=== PATIENT | male | born 1960 | race Caucasian/White ===

== ENCOUNTER 2017-04-16 13:36 | Emergency (ER) | payer BC, OTHER ==
[~2017-04-16] VITALS: Ht 157.5 cm; Wt 82.0 kg
[~2017-04-16 13:36] MED LIST: ASPI-664 PO; CALC0.5C4 PO; CALC500T91 PO; CITA10TA84 PO; IBUP-1542 PO; LEVO175T6 PO; LISI1TAB8 PO; MAG355OR14 PO; METO-429 PO
[2017-04-16 13:52] VITALS: Ht 157.5 cm; Wt 82.0 kg
[2017-04-16] MEDS ORDERED: KETOROLAC 30 MG INJ IV STA (14:48)
[2017-04-16] MEDS ORDERED: ONDANSETRON 4 MG INJ IV STA (14:48)
[2017-04-16] MEDS ORDERED: DOCUSATE SODIUM 100 MG CAP PO ONE (15:00)
--- NOTE | 2017-04-16 15:05 | ERD ---
ER Documentation Chief Complaint Date/Time DATE: 04/16/17 TIME: 14:59 Chief Complaint Right-sided flank pain, hematuria, and constipation HPI Patient is a 56-year-old male with a past medical history of thyroid cancer, hypertension who presents to the emergency department with multiple complaints including right-sided flank pain, hematuria and constipation. Patient states his right-sided flank pain started yesterday. Patient states he had a sharp stabbing pain in his right flank region. Patient states he did have chills and vomited once, nonbloody nonbilious. Patient states this morning he had hematuria and urinary frequency. Patient also admits to diffuse abdominal pain and bloating. Patient does report passing gas.. Patient states he has had constipation for the last 2 days. Patient states he does often strain and only drinks about 2 bottles of water per day. Patient's last bowel movement was 2 days ago. Patient denies any chest pain, shortness of breath, left upper return pain, diaphoresis or LOC. Patient denies any saddle anesthesia, urinary incontinence, stool incontinence, falls or trauma. ROS All systems reviewed and are negative except as per history of present illness. Medications Home Meds Active Scripts Tamsulosin Hcl* (Flomax*) 0.4 Mg Cap.er.24h, 0.4 MG PO QPM, #30 CAP Prov:ELIZABETH YI PA-C 04/16/17 Ondansetron (Ondansetron Odt) 4 Mg Tab.rapdis, 4 MG PO Q6H Y for NAUSEA AND/OR VOMITING, #10 TAB Prov:ELIZABETH YI PA-C 04/16/17 Hydrocodone/Acetaminophen ([place] 5-325 Tablet) 1 Each Tablet, 1 TAB PO Q6H Y for PAIN, #10 TAB Prov:ELIZABETH YI PA-C 04/16/17 Mag Hydrox/Al Hydrox/Simeth (Maalox Advanced Suspension) 355 Ml Oral.susp, 2 TSP PO TID for PAIN, #24 OZ Prov:LAMONT MALDONADO MD 08/03/16 Ibuprofen* (Ibuprofen*) 600 Mg Tablet, 600 MG PO Q8 for PAIN AND/OR INFLAMMATION , #30 TAB Prov:LAMONT MALDONADO MD 08/03/16 Reported Medications Calcium Carbonate (Qlsg-Iqu-732) 500 Mg Tablet, 1000 MG PO BID, TAB 08/03/16 Metoprolol Tartrate* (Lopressor*) 50 Mg Tab, 50 MG PO BID, #60 TAB 08/03/16 Calcitriol* (Calcitriol*) 0.5 Mcg Capsule, 0.5 MCG PO BID, CAP 08/03/16 Citalopram Hydrobromide* (Citalopram Hydrobromide*) 10 Mg Tablet, 10 MG PO DAILY , #30 TAB 08/03/16 Lisinopril/Hydrochlorothiazide (Lisinopril-Hctz 20-25 mg Tab) 1 Each Tablet, 1 EACH PO DAILY, TAB 08/03/16 Levothyroxine Sodium* (Levothyroxine Sodium*) 175 Mcg Tablet, 175 MCG PO BEFORE BREAKFAST, #30 TAB 08/03/16 Aspirin* (Aspirin* EC) 81 Mg Tablet.dr, 81 MG PO DAILY, TAB 08/03/16 Allergies Allergies: Coded Allergies: No Known Allergy (Unverified , 07/27/16) PMhx/Soc History of Surgery: Yes (colonoscopy 1 week ago) Anesthesia Reaction: No Hx Neurological Disorder: No Hx Respiratory Disorders: No Hx Cardiac Disorders: Yes (HTN) Hx Psychiatric Problems: No Hx Miscellaneous Medical Probl: No Hx Alcohol Use: No Hx Substance Use: No Hx Tobacco Use: No Physical Exam Vitals Vital Signs Date Time Temp Pulse Resp B/P Pulse Ox O2 Delivery O2 Flow Rate FiO2 04/16/17 17:45 98.2 88 18 142/88 98 Room Air 04/16/17 13:52 98.3 109 20 165/103 98 Physical Exam GENERAL: Well-developed, well-nourished male. Appears in no acute distress. HEAD: Normocephalic, atraumatic. EYES: Pupils are equally reactive bilaterally. EOMs grossly intact. No conjunctival erythema. ENT: Moist mucous membranes. No uvula deviation. No kissing tonsils. NECK: Supple. No meningismus. Normal range of motion of the neck. LUNG: Clear to auscultation bilaterally. No rhonchi, wheezing, rales or coarse breath sounds. HEART: Regular rate and rhythm. No murmurs, rubs or gallops. ABDOMEN: No scars, ecchymosis or rashes noted. Soft, and nondistended. Minimally tender to palpation in all 4 quadrants. Positive bowel sounds in all four quadrants. No rebound tenderness, no guarding. (-) McBurney's point tenderness. Right CVA tenderness. EXTREMITIES: Equal pulses bilaterally. No peripheral clubbing, cyanosis or edema. No unilateral leg swelling. NEUROLOGIC: Alert and oriented. Moving all four extremities without any difficulty. Normal speech. Steady gait. SKIN: Normal color. Warm and dry. No rashes or lesions. Result Diagram: 04/16/17 1503 04/16/17 1503 Results 24 hrs Laboratory Tests Test 04/16/17 15:03 White Blood Count 8.210^3/ul Red Blood Count 4.7210^6/ul Hemoglobin 14.4g/dl Hematocrit 40.9% Mean Corpuscular Volume 86.7fl Mean Corpuscular Hemoglobin 30.5pg Mean Corpuscular Hemoglobin Concent 35.2g/dl Red Cell Distribution Width 13.0% Platelet Count 90977^3/UL Mean Platelet Volume 9.5fl Neutrophils % 64.4% Lymphocytes % 24.5% Monocytes % 9.3% Eosinophils % 1.0% Basophils % 0.4% Nucleated Red Blood Cells % 0.0/100WBC Neutrophils # 5.310^3/ul Lymphocytes # 2.010^3/ul Monocytes # 0.810^3/ul Eosinophils # 0.110^3/ul Basophils # 0.010^3/ul Nucleated Red Blood Cells # 0.010^3/ul Urine Color YELLOW Urine Clarity CLEAR Urine pH 6.0 Urine Specific [place] 1.016 Urine Ketones NEGATIVEmg/dL Urine Nitrite NEGATIVEmg/dL Urine Bilirubin NEGATIVEmg/dL Urine Urobilinogen NEGATIVEmg/dL Urine Leukocyte Esterase NEGATIVELeu/ul Urine Microscopic RBC 171/HPF Urine Microscopic WBC 0/HPF Urine Hemoglobin 3+mg/dL Urine Glucose NEGATIVEmg/dL Urine Total Protein 2+mg/dl Sodium Level 144mmol/L Potassium Level 3.6mmol/L Chloride Level 96mmol/L Carbon Dioxide Level 32mmol/L Anion Gap 20 Blood Urea Nitrogen 25mg/dl Creatinine 1.98mg/dl Glucose Level 92mg/dl Calcium Level 10.3mg/dl Total Bilirubin 0.4mg/dl Direct Bilirubin 0.00mg/dl Indirect Bilirubin 0.4mg/dl Aspartate Amino Transf (AST/SGOT) 21IU/L Alanine Aminotransferase (ALT/SGPT) 35IU/L Alkaline Phosphatase 61IU/L Total Protein 8.0g/dl Albumin 4.3g/dl Globulin 3.70g/dl Albumin/Globulin Ratio 1.16 Lipase 62U/L Current Medications Medications (Trade) Dose Ordered Sig/Miguel Route PRN Reason Start Time Stop Time Status Last Admin Dose Admin Ondansetron HCl (Zofran Inj) 4 mg ONCE STAT IV 04/16/17 14:48 04/16/17 14:51 DC 04/16/17 15:31 Ketorolac Tromethamine (Toradol) 30 mg ONCE STAT IV 04/16/17 14:48 04/16/17 14:51 DC 04/16/17 15:31 Docusate Sodium 100 mg 100 mg ONCE ONCE PO 04/16/17 15:00 04/16/17 15:01 DC 04/16/17 15:40 Sodium Chloride (NS) 1,000 ml @ 1,000 mls/hr Q1H ONCE IV 04/16/17 17:00 04/16/17 17:46 DC 04/16/17 16:56 Procedures/MDM ED COURSE: The patient was stable throughout ED course. I kept the patient and/or family informed of laboratory and diagnostic imaging results throughout the ED course. DIAGNOSTIC IMAGING: Read by radiologist. DIAGNOSTIC IMAGING REPORT Patient: JAMA GARCIAS : 1960 Age: 56 Sex: M [id number] DOS: 04/16/17 1448 Ordering MD: ELIZABETH YI PA-C Location: [facility] Room/Bed: PROCEDURE: CT ABDOMEN AND PELVIS WITHOUT CONTRAST: CLINICAL INDICATION: 56 years of age, male , constipation and difficulty with urination. COMPARISON: None TECHNIQUE: CT of the abdomen, and pelvis was performed without intravenous contrast. Oral contrast was not administered prior to the examination. Coronal and sagittal reformatted images were obtained from the axial source images. Images were reviewed on a high-resolution PACS workstation. Dose information: Based on a 32 cm phantom, the estimated radiation dose (CTDI vol mGy) for each series in this exam is 11.3 . The estimated cumulative dose (DLP mGy-cm) is 770 . FINDINGS: In the absence of intravenous contrast, the study constitutes a limited assessment of the solid organs and vessels. LUNG BASES: Normal. ABDOMEN/PELVIS: Liver: Mild steatosis. Gallbladder: Normal. Bile ducts: No intrahepatic or extrahepatic biliary duct dilatation. Spleen: Normal. Pancreas: Normal. Adrenal glands: Normal. Kidneys and ureters: There is a 0.4 cm obstructing calculus at the left UVJ that protrudes into the bladder lumen with mild left hydronephrosis and hydroureter and minimal left perinephric fat stranding. No additional urinary calculi are identified. Kidneys are otherwise normal. Aorta and IVC: Normal noncontrast appearance. Lymph nodes: Normal. Gastrointestinal tract: Bowel loops are decompressed and appear normal. A normal quantity of colonic stool. Appendix: Normal Bladder: Normal. Pelvic Organs: Normal. Peritoneal cavity: No free fluid or free intraperitoneal air. Abdominal wall: Normal. BONES: Musculoskeletal: No suspicious bone lesions. IMPRESSION: 0.4 cm obstructing calculus at the left UVJ with mild left hydronephrosis and hydroureter. Bowel loops appear normal. Normal quantity of colonic stool. RPTAT: HCTS Physician Rik Date Time Electronically viewed and signed by Physician Rik on 04/16/2017 16: 38 CS/ CC: ELIZABETH YI PA-C PROCEDURES: None. MEDICATIONS GIVEN: Toradol, Zofran, IV fluids, Colace Patient tolerated medication well with no adverse reactions. Patient reported improvement in pain. MEDICAL DECISION MAKING: This is a 56-year-old male who presents with numerous concerns including right- sided flank pain, chills, vomiting and constipation. Patient's right-sided flank pain chills and vomiting started yesterday. Patient also states he developed some hematuria this morning. Patient reports constipation for 2 days.. Vital signs were reviewed. Patient is afebrile. CBC showed no evidence of systemic infection or severe anemia. CMP showed BUN of 25, creatinine of 1.98. Lipase showed no evidence of acute pancreatitis. UA showed no evidence of acute infection however 3+ hemoglobin was noted, [address] abdomen and pelvis showed 0.4 cm obstructing calculus at the left UVJ with mild left hydronephrosis and hydroureter. Bowel loops appear normal. Normal quantity of colonic stool. Discussed the patient's blood work and CT imaging findings with my supervising physician Dr. Boles. At this time there is no indication for inpatient admission. Given the patient has no signs of urine infection, patient may be managed on an outpatient basis. Patient will be given urology follow-up information. Patient was advised to drink plenty of fluids. At this time, patient's presentation is most consistent with nephrolithiasis, hydronephrosis and acute kidney injury. Low suspicion for AAA, mesenteric ischemia, lower lobe pneumonia, DKA, bowel perforation, bowel obstruction, cholecystitis, choledocholithiasis, a pancreatitis, PUD, gastritis, diverticulitis, UTI, pyelonephritis, appendicitis, significant stool retention. PRESCRIPTIONS: Flomax, [place], Zofran DISCHARGE: At this time, patient is stable for discharge and outpatient management. She was given a copy of all imaging studies and blood work obtained today. Patient will be advised to follow-up with the urologist on an outpatient basis. Referral information provided. I have instructed the patient to follow-up with his/her primary care physician in 1-2 days. I have instructed the patient to promptly return to the ER at any time for any new or worsening symptoms including increased pain, nausea, vomiting, diarrhea, fever, weakness or LOC. The patient and/or family expressed understanding of and agreement with this plan. All questions were answered. Home care instructions were provided. Disclaimer: Inadvertent spelling and grammatical errors are likely due to EHR/ dictation software use and do not reflect on the overall quality of patient care. Also, please note that the electronic time recorded on this note does not necessarily reflect the actual time of the patient encounter. Patients blood pressure was elevated (>120/80) but appears stable without evidence of hypertensive emergency, hypertensive urgency or end-organ failure. I had discussion with the patient about the risks of hypertension. I have advised the patient to follow up with his/her primary care physician for outpatient monitoring and treatment for hypertension in 2-3 days. I have instructed the patient to return to the ER for any new or worsening symptoms including chest pain, shortness of breath, headache, blurred vision, confusion, nausea, vomiting or LOC. Disclaimer: Inadvertent spelling and grammatical errors are likely due to EHR/ dictation software use and do not reflect on the overall quality of patient care. Also, please note that the electronic time recorded on this note does not necessarily reflect the actual time of the patient encounter. Departure Diagnosis: Primary Impression: Nephrolithiasis Additional Impressions: Hydronephrosis Hydronephrosis type: with renal calculous obstruction Qualified Code: N13.2 - Hydronephrosis with urinary obstruction due to renal calculus JARED (acute kidney injury) Condition: Stable Patient Instructions: Identifying Kidney Stones Referrals: CORRINA PRICE MD, JENNIFER MD MOTZKIN, DONALD MD= [facility] Additional Instructions: Follow-up with your primary care physician in the next 1-2 days. Return to the emergency department for any new or worsening symptoms including but not limited to severe pain, nausea, vomiting, difficulty urinating or LOC. Follow-up with the urologist in the next 1-2 days. See referral information. Drink plenty of fluids. You may need laser lithotripsy procedure on outpatient basis. ELIZABETH IY PA-C Apr 16, 2017 15:04
[2017-04-16 15:23] LABS: BASOPHILS % 0.4 % (0.0-2.0); EOSINOPHILS # 0.1 10^3/ul (0.0-0.5); HEMATOCRIT 40.9 % (42.0-52.0); HEMOGLOBIN 14.4 g/dl (14.0-18.0); LYMPHOCYTES % 24.5 % (15.0-51.0); MEAN CORPUSCULAR HEMOGLOBIN 30.5 pg (29.0-33.0); MEAN CORPUSCULAR HGB CONC 35.2 g/dl (32.0-37.0); MEAN CORPUSCULAR VOLUME 86.7 fl (82.0-101.0); MEAN PLATELET VOLUME 9.5 fl (7.4-10.4); MONOCYTE # 0.8 10^3/ul (0.3-0.9); MONOCYTES % 9.3 % (0.0-11.0); NEUTROPHIL # 5.3 10^3/ul (1.6-7.5); NEUTROPHILS % 64.4 % (39.0-77.0); PLATELET COUNT 251 10^3/UL (140-415); RED BLOOD COUNT 4.72 10^6/ul (4.70-6.10); WHITE BLOOD COUNT 8.2 10^3/ul (4.8-10.8)
[2017-04-16 15:32] LABS: ADD UMIC YES; UR ASCORBIC ACID NEGATIVE (NEGATIVE); UR BILIRUBIN (Dip) NEGATIVE (NEGATIVE); UR BLOOD (Dip) 3+ mg/dL (NEGATIVE); UR CLARITY CLEAR (CLEAR); UR COLOR YELLOW (YELLOW); UR GLUCOSE (Dip) NEGATIVE (NEGATIVE); UR KETONES (Dip) NEGATIVE (NEGATIVE); UR LEUKOCYTE ESTERASE (Dip) NEGATIVE Leu/ul (NEGATIVE); UR NITRITE (Dip) NEGATIVE (NEGATIVE); UR RBC 171 /HPF (0-5); UR SPECIFIC GRAVITY (Dip) 1.016 (1.003-1.030); UR TOTAL PROTEIN (Dip) 2+ mg/dl (NEGATIVE); UR UROBILINOGEN (Dip) NEGATIVE (NEGATIVE)
[2017-04-16 15:49] LABS: ALBUMIN 4.3 g/dl (3.3-4.9); ALBUMIN/GLOBULIN RATIO 1.16; BILIRUBIN,INDIRECT 0.4 mg/dl (0-1.1); BILIRUBIN,TOTAL 0.4 mg/dl (0.2-1.3); CALCIUM 10.3 mg/dl (8.4-10.2); CREATININE 1.98 mg/dl (0.61-1.24); POTASSIUM 3.6 mmol/L (3.5-5.1)
--- NOTE | 2017-04-16 16:38 | RADRPT ---
PROCEDURE: CT ABDOMEN AND PELVIS WITHOUT CONTRAST: CLINICAL INDICATION: 56 years of age, male , constipation and difficulty with urination. COMPARISON: None TECHNIQUE: CT of the abdomen, and pelvis was performed without intravenous contrast. Oral contrast w as not administered prior to the examination. Coronal and sagittal reformatted images were obtained from the axial source images. Images were revi ewed on a high-resolution PACS workstation. Dose information: Based on a 32 cm phantom, the estimated radiation dose (CTDI vol mGy) for each ser ies in this exam is 11.3 . The estimated cumulative dose (DLP mGy-cm) is 770 . FINDINGS: In the absence of intravenous contrast, the study constitutes a limited assessment of the solid orga ns and vessels. LUNG BASES: Normal. ABDOMEN/PELVIS: Liver: Mild steatosis. Gallbladder: Normal. Bile ducts: No intrahepatic or extrahepatic biliary duct dilatation. Spleen: Normal. Pancreas: Normal. Adrenal glands: Normal. Kidneys and ureters: There is a 0.4 cm obstructing calculus at the left UVJ that protrudes into the bladder lumen with mild left hydronephrosis and hydroureter and minimal left perinephric fat strandi ng. No additional urinary calculi are identified. Kidneys are otherwise normal. Aorta and IVC: Normal noncontrast appearance. Lymph nodes: Normal. Gastrointestinal tract: Bowel loops are decompressed and appear normal. A normal quantity of coloni c stool. Appendix: Normal Bladder: Normal. Pelvic Organs: Normal. Peritoneal cavity: No free fluid or free intraperitoneal air. Abdominal wall: Normal. BONES: Musculoskeletal: No suspicious bone lesions. IMPRESSION: 0.4 cm obstructing calculus at the left UVJ with mild left hydronephrosis and hydroureter. Bowel loops appear normal. Normal quantity of colonic stool. RPTAT: HCTS Physician Rik Date Time Electronically viewed and signed by Physician Rik on 04/16/2017 16:38 CS/
[2017-04-16] MEDS ORDERED: ONDA4TAB14 PO (17:00)
[2017-04-16] MEDS ORDERED: HYDR-906 PO (17:00)
[2017-04-16] MEDS ORDERED: SOD CHLORIDE 0.9% 1,000 ML IV ONE (17:00)
[2017-04-16] MEDS ORDERED: TAMS-14 PO (17:01)
[2017-04-16 17:45] VITALS: BP 142/88; PULSE 88; RESP 18; TEMP 98.2
== END 2017-04-16 17:46 | disposition home or self-care (01) ==
LOC: FTE 13:36
DX: N13.2 Hydronephrosis with renal and ureteral calculous obstruction (principal); I10 Essential (primary) hypertension; N17.9 Acute kidney failure, unspecified; R11.10 Vomiting, unspecified; Z79.82 Long term (current) use of aspirin; Z85.850 Personal history of malignant neoplasm of thyroid
CPT/HCPCS: 36415; 74176; 80053; 81001; 83690; 85025; 96374; 96375; 99285; J1885; J2405; J7030

== ENCOUNTER 2018-11-19 14:23 | Inpatient (IN) | payer OTHER ==
[~2018-11-19] VITALS: Ht 167.6 cm; Wt 81.3 kg
[~2018-11-19 14:23] MED LIST changes: -ASPI-664 PO; +ASPI-817 PO; +CALC0.5C10 PO; -CALC0.5C4 PO; +CITA10TA5 PO; -CITA10TA84 PO; +HYDR-4011 PO; +ONDA4TAB14 PO; +TAMS-14 PO
[2018-11-19] MEDS ORDERED: SOD CHLORIDE 0.9% 1,000 ML IV STA (14:42)
[2018-11-19] MEDS ORDERED: ONDANSETRON 4 MG INJ IV STA (14:42)
[2018-11-19] MEDS ORDERED: morphine 4 MG/ML VIAL IV STA (14:42)
[2018-11-19] MEDS ORDERED: ASPIRIN 81 MG TAB PO ONE (16:30)
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
[2018-11-19] MEDS ORDERED: CALC0.5C10 PO (16:51)
[2018-11-19] MEDS ORDERED: CHLO25TA2 PO (16:51)
[2018-11-19] MEDS ORDERED: LEVO175T38 PO (16:51)
[2018-11-19] MEDS ORDERED: CALC1TAB79 PO (16:52)
[2018-11-19] MEDS ORDERED: ONDANSETRON 4 MG INJ IV PRN (17:00)
[2018-11-19] MEDS ORDERED: ACETAMINOPHEN 325 MG TAB PO PRN (17:00)
[2018-11-19] MEDS ORDERED: POTASSIUM CHLORIDE (SR) 20 MEQ TAB PO STA (17:05)
[2018-11-19] MEDS ORDERED: NACL 0.9% 3 ML SYG IV SCH (18:00)
[2018-11-19] MEDS ORDERED: NITROGLYCERIN (SL) 0.4 MG TAB SL PRN (18:00)
[2018-11-19] MEDS ORDERED: morphine 2 MG INJ IV PRN (18:00)
[2018-11-19] MEDS ORDERED: MAGNESIUM HYDROXIDE 30ML CUP PO PRN (18:00)
[2018-11-19] MEDS ORDERED: HYDROCODONE/APAP (5/325) TAB PO PRN (18:00)
[2018-11-19] MEDS ORDERED: hydrALAzine 20 MG INJ IV PRN (18:00)
[2018-11-19] MEDS ORDERED: LORAZEPAM 2 MG INJ IV PRN (18:00)
[2018-11-19] MEDS ORDERED: ALBUTEROL/IPRATROPIUM (NEB) 3 ML AMP HHN PRN (18:00)
[2018-11-19] MEDS ORDERED: DOCUSATE SODIUM 100 MG CAP PO PRN (18:00)
[2018-11-19 19:30] VITALS: Ht 167.6 cm; Wt 81.3 kg
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
[2018-11-19 20:08] VITALS: PULSE 118
[2018-11-19 20:21] VITALS: BP 119/70; PULSE 120; RESP 20
[2018-11-19] MEDS: ATORVASTATIN 80 MG TAB PO SCH (20:23)
[2018-11-19] MEDS: SOD CHLORIDE 0.45% 1,000 ML IV SCH (20:23)
[2018-11-19] MEDS: HEPARIN 5,000 UNIT/1 ML VIAL SC SCH (20:30)
[2018-11-19] MEDS: ACETAMINOPHEN 325 MG TAB PO PRN (20:35)
[2018-11-19] MEDS ORDERED: POTASSIUM CHLORIDE (SR) 20 MEQ TAB PO ONE (22:26)
[2018-11-19] MEDS ORDERED: IBUPROFEN 600 MG TAB PO ONE (22:30)
[2018-11-19 23:28] VITALS: BP 115/77; PULSE 100; RESP 20
[2018-11-20] VITALS (11 sets, daily range): BP systolic 121–138; BP diastolic 65–93; PULSE 83–112; RESP 20
[2018-11-20] MEDS: PANTOPRAZOLE (EC) 40 MG TAB PO SCH (06:26)
[2018-11-20] MEDS ORDERED: LEVOTHYROXINE 175 MCG TAB PO SCH (07:00)
[2018-11-20] MEDS: SOD CHLORIDE 0.45% 1,000 ML IV SCH ×3 (07:16→23:06)
[2018-11-20] MEDS: CALCITRIOL 0.25 MCG CAP PO SCH (09:51)
[2018-11-20] MEDS: ASPIRIN (EC) 325 MG TAB PO SCH (09:52)
[2018-11-20] MEDS: CHLORTHALIDONE 25 MG TAB PO SCH (09:52)
[2018-11-20] MEDS: HEPARIN 5,000 UNIT/1 ML VIAL SC SCH ×2 (10:43→20:38)
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
[2018-11-20] MEDS: ACETAMINOPHEN 325 MG TAB PO PRN ×2 (14:40→20:43)
--- NOTE | 2018-11-20 17:41 | RADRPT ---
Echocardiogram Report Patient Name: JAMA GARCIASPatient ID: [id number] : 1960 (58y )Study Date: 11/20/2018 7:22:42 AM Gender: Jesscession #: [id number] Tech: CHI Esparza [facility] Location: [address] Ref.Physician: EROS ANDERSEN Height(Cm): BSA: Weight(Kg): Quality: GoodAccount #: Procedures: Echocardiographic Report: Transthoracic echocardiogram with complete 2D, M-Mode, and doppler examination. Indications: r/o Transient Ischemic Attack. Measurements: 2D/M Mode Doppler Measurement Value Normal Range Measurement Value Normal Range LVIDd 2D 3.4 [ 4.2 - 5.8 ] cm AV Peak Bruno 1.2 [ 100.0 - 170.0 ] cm/se c LVIDs 2D 2.2 [ 2.5 - 4.0 ] cm AV Peak PG 6.0 [ 2.0 - 9.0 ] mmHg LVPWd 2D 0.9 [ 0.6 - 1.0 ] cm LVOT Peak Bruno 0.8 [ 70.0 - 110.0 ] cm/sec IVSd 2D 1.1 [ 0.6 - 1.0 ] cm LVOT Peak PG 3.0 [ 2.0 - 6.0 ] mmHg AoR Diam 2D 3.3 [ 2.6 - 3.4 ] cm MV E Peak Bruno 0.7 [ 60.0 - 130.0 ] cm/sec EDV 2D 47.8 [ 62.0 - 150.0 ] ml MV A Peak Bruno 0.3 [ 100.0 - 120.0 ] cm/se c ESV 2D 16.6 [ 21.0 - 61.0 ] ml MV E/A 2.4 [ 0.8 - 1.5 ] ratio EF 2D 65.3 [ 52.0 - 72.0 ] percent MV PHT 57.0 [ 20.0 - 100.0 ] msec LA Dimen 2D 3.0 [ 3.0 - 4.0 ] cm MV Decel Time 194 [ 104 - 258 ] msec MV Decel Harney 3 Lat E` Bruno 0.1 [ 10.0 - 15.0 ] cm/sec Lateral E/E` 7.4 [ 1.0 - 2.0 ] ratio Med E` Bruno 0.1 cm/sec MV E/A 2.4 [ 0.8 - 1.5 ] ratio MVA PHT 3.9 [ 2.0 - 4.0 ] cm2 Findings: Left Ventricle: Normal left ventricular systolic function. Normal left ventricular cavity size. Left ventricular wall thickness upper limits of normal. Ejection fraction is visually estimated at 55 %. Tissue Doppler/Mitral Doppler indices are within normal limits. Right Ventricle: Normal right ventricular size. Normal right ventricular systolic function. Left Atrium: The left atrium is normal in size. Right Atrium: The right atrium is normal in size. Atrial Septum: Normal atrial septum. Ventricular septum: Normal/intact ventricular septum. Mitral Valve: Normal appearance of the mitral valve. Trace mitral regurgitation. Aortic Valve: Normal appearance of the aortic valve. No aortic regurgitation. Tricuspid Valve: Normal appearance of the tricuspid valve. Unable to obtain RVSP due to minimal presence of tricuspid regurgitation. No evidence of tricuspid regurgitation. Pulmonic Valve: Normal pulmonic valve appearance. No evidence of pulmonic regurgitation. Pericardium: Normal pericardium with no significant pericardial effusion. Aorta: Normal aortic root. IVC: Normal size and normal respiratory collapse consistent with normal right atrial pressure. Conclusions: Normal left ventricular systolic function. Normal left ventricular cavity size. Left ventricular wall thickness upper limits of normal. Ejection fraction is visually estimated at 55 %. Tissue Doppler/Mitral Doppler indices are within normal limits. Electronically Signed By: Alfredo Neely 2018-11-20 17:40:18 PDT
[2018-11-20] MEDS: ATORVASTATIN 80 MG TAB PO SCH (20:33)
[2018-11-20] MEDS: CEFTRIAXONE 1 GM/50 ML (PMX) 50 ML IVPB SCH (22:17)
[2018-11-20] MEDS ORDERED: ACETAMINOPHEN 325 MG TAB PO ONE (22:30)
[2018-11-21] VITALS (13 sets, daily range): BP systolic 113–139; BP diastolic 73–89; PULSE 94–109; RESP 19–20
[2018-11-21] MEDS ORDERED: VANCOMYCIN IV PER PHARMACY XX SCH (01:00)
[2018-11-21] MEDS ORDERED: VANCOMYCIN HCL 1.5 GM in SOD CHLORIDE 0.9% 250 ML IVPB SCH (03:00)
[2018-11-21] MEDS: PANTOPRAZOLE (EC) 40 MG TAB PO SCH (05:21)
[2018-11-21] MEDS: LEVOTHYROXINE 150 MCG TAB PO SCH (05:22)
[2018-11-21] MEDS: ACETAMINOPHEN 325 MG TAB PO PRN ×3 (05:22→17:57)
[2018-11-21] MEDS ORDERED: LEVOTHYROXINE 175 MCG TAB PO SCH (07:00)
[2018-11-21] MEDS ORDERED: POTASSIUM CHLORIDE 20 MEQ POWDER FOR ORAL SOLN PO ONE (09:30)
[2018-11-21] MEDS: CALCITRIOL 0.25 MCG CAP PO SCH (10:43)
[2018-11-21] MEDS: ASPIRIN (EC) 325 MG TAB PO SCH (10:44)
[2018-11-21] MEDS: CHLORTHALIDONE 25 MG TAB PO SCH (10:44)
[2018-11-21] MEDS: SOD CHLORIDE 0.45% 1,000 ML IV SCH ×2 (10:44→21:05)
[2018-11-21] MEDS: HEPARIN 5,000 UNIT/1 ML VIAL SC SCH ×2 (10:50→21:02)
[2018-11-21] MEDS: ONDANSETRON 4 MG INJ IV PRN (12:05)
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
[2018-11-21] MEDS ORDERED: VANCOMYCIN 750 MG (PMX) 250 ML IVPB SCH (15:00)
[2018-11-21] MEDS: VANCOMYCIN 1 GM 250 ML IVPB SCH (16:06)
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
[2018-11-21] MEDS: ATORVASTATIN 80 MG TAB PO SCH (20:57)
[2018-11-21] MEDS ORDERED: IBUPROFEN 400 MG TAB PO ONE (21:00)
[2018-11-21] MEDS: CEFTRIAXONE 1 GM/50 ML (PMX) 50 ML IVPB SCH (22:16)
[2018-11-22] VITALS (12 sets, daily range): BP systolic 109–140; BP diastolic 67–85; PULSE 93–110; RESP 18–20
[2018-11-22] MEDS: VANCOMYCIN 1 GM 250 ML IVPB SCH ×2 (03:14→15:29)
[2018-11-22] MEDS: IBUPROFEN 400 MG TAB PO PRN ×3 (04:55→21:21)
[2018-11-22] MEDS: PANTOPRAZOLE (EC) 40 MG TAB PO SCH (06:25)
[2018-11-22] MEDS: LEVOTHYROXINE 150 MCG TAB PO SCH (06:25)
[2018-11-22] MEDS: CALCITRIOL 0.25 MCG CAP PO SCH (08:56)
[2018-11-22] MEDS: ASPIRIN (EC) 325 MG TAB PO SCH (08:57)
[2018-11-22] MEDS: CHLORTHALIDONE 25 MG TAB PO SCH (08:57)
[2018-11-22] MEDS: HEPARIN 5,000 UNIT/1 ML VIAL SC SCH ×2 (09:04→21:31)
[2018-11-22] MEDS ORDERED: POTASSIUM CHLORIDE 20 MEQ POWDER FOR ORAL SOLN PO ONE (09:30)
[2018-11-22] MEDS ORDERED: POTASSIUM CHLORIDE 100 ML IVPB ONE (09:30)
[2018-11-22] MEDS ORDERED: CEFTRIAXONE 1 GM/50 ML (PMX) 50 ML IVPB SCH (11:00)
--- NOTE | 2018-11-22 12:22 | CONS ---
Assessment/Plan Assessment/Plan Hospital Course (Demo Recall) EMR reviewed. Case d/w team. will be in shortly. added some additional w/u labs for now. Ty Consultation Date/Type/Reason Admit Date/Time Nov 21, 2018 at 09:13 Date/Time of Note DATE: 11/22/18 TIME: 12:21 Past Medical History Home Meds Reported Medications Calcium Carbonate/Vitamin D3 ([place] 500+D Tablet) 1 Each Tablet, 2 EACH PO BID, TAB 11/19/18 Calcitriol* (Calcitriol*) 0.5 Mcg Capsule, 0.5 MCG PO DAILY, CAP 11/19/18 Levothyroxine Sodium* (Levoxyl*) 175 Mcg Tablet, 175 MCG PO BEFORE BREAKFAST, #30 TAB 11/19/18 Chlorthalidone* (Chlorthalidone*) 25 Mg Tablet, 25 MG PO DAILY, TAB 11/19/18 Discontinued Reported Medications Calcium Carbonate ([id number]) 500 Mg Tablet, 1000 MG PO BID, TAB 08/03/16 Metoprolol Tartrate* (Lopressor*) 50 Mg Tab, 50 MG PO BID, #60 TAB 08/03/16 Calcitriol* (Calcitriol*) 0.5 Mcg Capsule, 0.5 MCG PO BID, CAP 08/03/16 Citalopram Hydrobromide* (Citalopram Hydrobromide*) 10 Mg Tablet, 10 MG PO DAILY, #30 TAB 08/03/16 Lisinopril/Hydrochlorothiazide (Lisinopril-Hctz 20-25 mg Tab) 1 Each Tablet, 1 EACH PO DAILY, TAB 08/03/16 Levothyroxine Sodium* (Levothyroxine Sodium*) 175 Mcg Tablet, 175 MCG PO BEFORE BREAKFAST, #30 TAB 08/03/16 Aspirin* (Aspirin* EC) 81 Mg Tablet.dr, 81 MG PO DAILY, TAB 08/03/16 Discontinued Scripts Tamsulosin Hcl* (Flomax*) 0.4 Mg Cap.er.24h, 0.4 MG PO QPM, #30 CAP Prov:ELIZABETH YI PA-C 04/16/17 Ondansetron (Ondansetron Odt) 4 Mg Tab.rapdis, 4 MG PO Q6H PRN for NAUSEA AND/OR VOMITING, #10 TAB Prov:ELIZABETH YI PA-C 04/16/17 Hydrocodone/Acetaminophen ([place] 5-325 Tablet) 1 Each Tablet, 1 TAB PO Q6H PRN for PAIN, #10 TAB Prov:ELIZABETH YI PA-C 04/16/17 Mag Hydrox/Al Hydrox/Simeth (Maalox Advanced Suspension) 355 Ml Oral.susp, 2 TSP PO TID for PAIN, #24 OZ Prov:LAMONT MALDONADO MD 08/03/16 Ibuprofen* (Ibuprofen*) 600 Mg Tablet, 600 MG PO Q8 for PAIN AND/OR INFLAMMATION, #30 TAB Prov:LAMONT MALDONADO MD 08/03/16 Medications Current Medications IV Flush (NS 3 ml) 3 ml PER PROTOCOL IV ; Start 11/19/18 at 18:00 Ondansetron HCl (Zofran Inj) 4 mg Q6H PRN IV NAUSEA/VOMITING Last administered on 11/21/18at 12:05; Admin Dose 4 MG; Start 11/19/18 at 18:00 Acetaminophen (Tylenol Tab) 650 mg Q6H PRN PO .PAIN 1-3 OR TEMP Last administered on 11/21/18at 17:57; Admin Dose 650 MG; Start 11/19/18 at 18:00 Acetaminophen/ Hydrocodone Bitart ([place] (5/325)) 1 tab Q6H PRN PO .MOD PAIN 4- 6 Last administered on 11/20/18at 16:02; Admin Dose 1 TAB; Start 11/19/18 at 18:0 0 Morphine Sulfate (morphine) 2 mg Q4H PRN IV .SEVERE PAIN 7-10; Start 11/19/18 at 18:00 Docusate Sodium (Colace) 100 mg Q12H PRN PO .CONSTIPATION; Start 11/19/18 at 18:00 Magnesium Hydroxide (Milk Of Mag) 30 ml DAILY PRN PO .CONSTIPATION; Start 11/19/18 at 18:00 Pantoprazole (Protonix Tab) 40 mg DAILY@06 PO Last administered on 11/22/18at 06:25; Admin Dose 40 MG; Start 11/20/18 at 06:00 Heparin Sodium (Porcine) (Heparin (5000 Units/1ml)) 5,000 unit Q12 SC Last administered on 11/22/18 09:04; Admin Dose 5,000 UNIT; Start 11/19/18 at 21:00 Sodium Chloride 1,000 ml @ 75 mls/hr [id number] IV Last administered on 11/21/18at 21:05; Admin Dose 75 MLS/HR; Start 11/19/18 at 17:44 Lorazepam (Ativan) 0.5 mg Q6H PRN IV ANXIETY; Start 11/19/18 at 18:00 Albuterol/ Ipratropium (Duoneb) 3 ml Q4H RESP THERAPY PRN HHN SHORTNESS OF BREATH; Start 11/19/18 at 18:00 Hydralazine HCl (Apresoline) 10 mg Q6H PRN IV ELEVATED BLOOD PRESSURE; Start 11/19/18 at 18:00 Nitroglycerin (Nitroglycerin (Sl Tab) 0.4 Mg) 1 tab Q5M PRN SL ANGINA; Start 11/19/18 at 18:00 Aspirin (Ecotrin) 325 mg DAILY PO Last administered on 11/22/18at 08:57; Admin Dose 325 MG; Start 11/20/18 at 09:00 Calcitriol (Rocaltrol) 0.5 mcg DAILY PO Last administered on 11/22/18at 08:56; Admin Dose 0.5 MCG; Start 11/20/18 at 09:00 Chlorthalidone (Hygroton) 25 mg DAILY PO Last administered on 11/22/18at 08:57; Admin Dose 25 MG; Start 11/20/18 at 09:00 Atorvastatin Calcium (Lipitor) 80 mg HS PO Last administered on 11/21/18at 20:57; Admin Dose 80 MG; Start 11/19/18 at 21:00 Levothyroxine Sodium (Synthroid) 150 mcg DAILY@06 PO Last administered on 11/22/18at 06:25; Admin Dose 150 MCG; Start 11/21/18 at 06:00 Vancomycin HCl (Vanco Iv Per Pharmacy) VANCOMYCIN PER PHARMACY PER PROTOCOL XX ; Start 11/21/18 at 01:00 Vancomycin HCl 250 ml @ 125 mls/hr Q12H IVPB Last administered on 11/22/18at 03:14; Admin Dose 125 MLS/HR; Start 11/21/18 at 15:00 Miscellaneous Information (*Rx Drug Level Order Reminder*) VANCOMYCIN TROUGH AT 1400 ONCE ONCE XX ; Start 11/22/18 at 14:00; Stop 11/22/18 at 14:01 Ibuprofen (Motrin) 400 mg Q6H PRN PO MILD PAIN(1-3) OR TEMP>38C Last administered on 11/22/18at 04:55; Admin Dose 400 MG; Start 11/22/18 at 05:00 Ceftriaxone Sodium 50 ml @ 100 mls/hr Q12H IVPB ; Start 11/22/18 at 11:00 Allergies: Coded Allergies: No Known Allergy (Unverified , 11/19/18) Social History Smoking Status: Former smoker Exam/Review of Systems Exam Vitals Vital Signs Date Temp Pulse Resp B/P (MAP) Pulse Ox O2 O2 Flow FiO2 Time Delivery Rate 11/22/18 94 12:04 11/22/18 99.4 20 113/70 97 07:26 (84) 11/21/18 21 23:56 11/19/18 Room Air 20:21 Intake and Output 11/21/18 11/21/18 11/22/18 1515:00 23:00 07:00 IntakeIntake Total 1700 ml 600 ml OutputOutput Total 400 ml 800 ml BalanceBalance 1300 ml -200 ml Results Result Diagram: 11/22/18 0734 11/22/18 0733 Results 24hrs Laboratory Tests Test 11/21/18 16:10 11/22/18 07:33 11/22/18 07:34 Urine Opiates Screen Negative Urine Barbiturates Negative Urine Amphetamines Screen Negative Urine Benzodiazepines Screen Negative Urine Cocaine Screen Negative Urine Cannabinoids Negative Sodium Level 141 Potassium Level 2.9 *L Chloride Level 96 L Carbon Dioxide Level 32 H Anion Gap 13 Blood Urea Nitrogen 16 Creatinine 1.13 Est Glomerular Filtrat Rate mL/min > 60 Glucose Level 103 Calcium Level 6.9 L White Blood Count 4.3 #L Red Blood Count 4.49 L Hemoglobin 13.0 L Hematocrit 38.0 L Mean Corpuscular Volume 84.6 Mean Corpuscular Hemoglobin 29.0 Mean Corpuscular Hemoglobin Concent 34.2 Red Cell Distribution Width 12.9 Platelet Count 167 Mean Platelet Volume 9.4 Immature Granulocytes % 0.500 H Neutrophils % 77.1 H Lymphocytes % 15.7 Monocytes % 6.2 Eosinophils % 0.0 Basophils % 0.5 Nucleated Red Blood Cells % 0.0 Immature Granulocytes # 0.020 Neutrophils # 3.3 Lymphocytes # 0.7 L Monocytes # 0.3 Eosinophils # 0.0 Basophils # 0.0 Nucleated Red Blood Cells # 0.0 Medications Medication Current Medications IV Flush (NS 3 ml) 3 ml PER PROTOCOL IV ; Start 11/19/18 at 18:00 Ondansetron HCl (Zofran Inj) 4 mg Q6H PRN IV NAUSEA/VOMITING Last administered on 11/21/18at 12:05; Admin Dose 4 MG; Start 11/19/18 at 18:00 Acetaminophen (Tylenol Tab) 650 mg Q6H PRN PO .PAIN 1-3 OR TEMP Last administered on 11/21/18at 17:57; Admin Dose 650 MG; Start 11/19/18 at 18:00 Acetaminophen/ Hydrocodone Bitart ([place] (5/325)) 1 tab Q6H PRN PO .MOD PAIN 4- 6 Last administered on 11/20/18at 16:02; Admin Dose 1 TAB; Start 11/19/18 at 18:00 Morphine Sulfate (morphine) 2 mg Q4H PRN IV .SEVERE PAIN 7-10; Start 11/19/18 at 18:00 Docusate Sodium (Colace) 100 mg Q12H PRN PO .CONSTIPATION; Start 11/19/18 at 18:00 Magnesium Hydroxide (Milk Of Mag) 30 ml DAILY PRN PO .CONSTIPATION; Start 11/19/18 at 18:00 Pantoprazole (Protonix Tab) 40 mg DAILY@06 PO Last administered on 11/22/18 06:25; Admin Dose 40 MG; Start 11/20/18 at 06:00 Heparin Sodium (Porcine) (Heparin (5000 Units/1ml)) 5,000 unit Q12 SC Last administered on 11/22/18at 09:04; Admin Dose 5,000 UNIT; Start 11/19/18 at 21:00 Sodium Chloride 1,000 ml @ 75 mls/hr [id number] IV Last administered on 11/21/18at 21:05; Admin Dose 75 MLS/HR; Start 11/19/18 at 17:44 Lorazepam (Ativan) 0.5 mg Q6H PRN IV ANXIETY; Start 11/19/18 at 18:00 Albuterol/ Ipratropium (Duoneb) 3 ml Q4H RESP THERAPY PRN HHN SHORTNESS OF BREATH; Start 11/19/18 at 18:00 Hydralazine HCl (Apresoline) 10 mg Q6H PRN IV ELEVATED BLOOD PRESSURE; Start 11/19/18 at 18:00 Nitroglycerin (Nitroglycerin (Sl Tab) 0.4 Mg) 1 tab Q5M PRN SL ANGINA; Start 11/19/18 at 18:00 Aspirin (Ecotrin) 325 mg DAILY PO Last administered on 11/22/18 08:57; Admin Dose 325 MG; Start 11/20/18 at 09:00 Calcitriol (Rocaltrol) 0.5 mcg DAILY PO Last administered on 11/22/18 08:56; Admin Dose 0.5 MCG; Start 11/20/18 at 09:00 Chlorthalidone (Hygroton) 25 mg DAILY PO Last administered on 11/22/18 08:57; Admin Dose 25 MG; Start 11/20/18 at 09:00 Atorvastatin Calcium (Lipitor) 80 mg HS PO Last administered on 11/21/18at 20:57; Admin Dose 80 MG; Start 11/19/18 at 21:00 Levothyroxine Sodium (Synthroid) 150 mcg DAILY@06 PO Last administered on 11/22/18 06:25; Admin Dose 150 MCG; Start 11/21/18 at 06:00 Vancomycin HCl (Vanco Iv Per Pharmacy) VANCOMYCIN PER PHARMACY PER PROTOCOL XX ; Start 11/21/18 at 01:00 Vancomycin HCl 250 ml @ 125 mls/hr Q12H IVPB Last administered on 11/22/18 03:14; Admin Dose 125 MLS/HR; Start 11/21/18 at 15:00 Miscellaneous Information (*Rx Drug Level Order Reminder*) VANCOMYCIN TROUGH AT 1400 ONCE ONCE XX ; Start 11/22/18 at 14:00; Stop 11/22/18 at 14:01 Ibuprofen (Motrin) 400 mg Q6H PRN PO MILD PAIN(1-3) OR TEMP>38C Last administered on 11/22/18 04:55; Admin Dose 400 MG; Start 11/22/18 at 05:00 Ceftriaxone Sodium 50 ml @ 100 mls/hr Q12H IVPB ; Start 11/22/18 at 11:00 ZAK GRAVES MD Nov 22, 2018 12:22
[2018-11-22] MEDS: SOD CHLORIDE 0.45% 1,000 ML IV SCH (13:09)
--- NOTE | 2018-11-22 14:47 | CONS ---
Assessment/Plan Assessment/Plan Hospital Course 57 yo M with hx of HTN and thyroid CA who presents following a transient alteration of awareness with ? LOC... for which neurology is consulted. The clinical picture is concerning for seizures. Transient global amnesia is a diagnosis of exclusion. Interval events: Today, 11/22/18, the pt is noted to be febrile with c/o headache, neck pain, and intermittent ams. Most ominously concerning for meningoencephalitis... MRI brain is reassuringly without acute intracranial pathology EEG is without epileptiform activity. Urine cx + Coags nl; plt 167 P: LP with CSF eval for further characterization Defer AED therapy for now Ativan IV PRN seizure > 5 min or for cluster Cont other medical management per primary Recommend MRI brain c/ c/o contrast with thin cuts through the temporal lobes to further evaluate for a potential seizure focus, which may be done as an outpatient. The pt cannot drive Will follow clinically Consultation Date/Type/Reason Admit Date/Time Nov 21, 2018 at 09:13 Type of Consult Neurology Reason for Consultation TLOC; dysarthria Requesting Provider: EROS ADNERSEN Date/Time of Note DATE: 11/22/18 TIME: 14:46 24 HR Interval Summary Free Text/Dictation Continues acute care. Tmax 102.1 today. Pt endorses headache, neck ache. Daughter at bedside states that the pt has had episodes of confusion when his temperature spikes. Exam Vital Signs Vitals Vital Signs Date Temp Pulse Resp B/P (MAP) Pulse Ox O2 O2 Flow FiO2 Time Delivery Rate 11/22/18 102.2 103 20 140/85 97 13:00 (103) 11/21/18 21 23:56 11/19/18 Room Air 20:21 Intake and Output 11/21/18 11/21/18 11/22/18 1515:00 23:00 07:00 IntakeIntake Total 1700 ml 600 ml OutputOutput Total 400 ml 800 ml BalanceBalance 1300 ml -200 ml Exam PE: Gen Appearance: No Apparent Distress HEENT: Normocephalic Cardiovascular: Regular rate Lungs: Clear bilaterally Abdomen: Soft Extremities: Dry NE: The patient was alert and oriented. Language was normal. Fund of knowledge was normal. Pupils were equal and reactive to light. There was no afferent pupillary defect. Visual negron were normal. Funduscopic examination was limited.. Extra-ocular movements were full. Ptosis was absent. There was no nystagmus. Facial sensation was normal. Face was symmetric with normal strength. Hearing was intact. Palate movements were normal. Neck strength was normal. There was normal tongue bulk and speed of movement. Tone was normal. Muscle bulk was normal. I did not see fasciculations. I did not see signs of meningsmus. Arms and legs were strong. Vibration sensation was normal. Temperature and pinprick sensation was normal. Rapid alternating movements were normal. There was no dysmetria. There was no intention tremor. Gait was deferred due to bedrest. Arm and leg reflexes were 2+ and symmetric. Holloway's sign was absent. Plantar responses were flexor. BARB HICKMAN NP Nov 22, 2018 14:47
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
--- NOTE | 2018-11-22 16:09 | CONS ---
Assessment/Plan Assessment/Plan Hospital Course (Demo Recall) emr reviewed. care coordinated with sharepoint designer developer and care directed. Consultation Date/Type/Reason Admit Date/Time Nov 21, 2018 at 09:13 Initial Consult Date Requesting Provider: EROS ANDERSEN Date/Time of Note DATE: 11/22/18 TIME: 16:09 Exam/Review of Systems Exam Vitals Vital Signs Date Temp Pulse Resp B/P (MAP) Pulse Ox O2 O2 Flow FiO2 Time Delivery Rate 11/22/18 96 16:08 11/22/18 102.2 20 140/85 97 13:00 (103) 11/21/18 21 23:56 11/19/18 Room Air 20:21 Intake and Output 11/21/18 11/21/18 11/22/18 1515:00 23:00 07:00 IntakeIntake Total 1700 ml 600 ml OutputOutput Total 400 ml 800 ml BalanceBalance 1300 ml -200 ml Results Result Diagram: 11/22/18 0734 11/22/18 0733 Results 24hrs Laboratory Tests Test 11/21/18 16:10 11/22/18 07:31 11/22/18 07:33 11/22/18 07:34 Urine Opiates Screen Negative Urine Barbiturates Negative Urine Amphetamines Negative Screen Urine Negative Benzodiazepines Screen Urine Cocaine Screen Negative Urine Cannabinoids Negative HIV (1&2) Antibody NEGATIVE Sodium Level 141 Potassium Level 2.9 *L Chloride Level 96 L Carbon Dioxide Level 32 H Anion Gap 13 Blood Urea Nitrogen 16 Creatinine 1.13 Est Glomerular > 60 Filtrat Rate mL/min Glucose Level 103 Calcium Level 6.9 L White Blood Count 4.3 #L Red Blood Count 4.49 L Hemoglobin 13.0 L Hematocrit 38.0 L Mean Corpuscular 84.6 Volume Mean Corpuscular 29.0 Hemoglobin Mean Corpuscular 34.2 Hemoglobin Concent Red Cell 12.9 Distribution Width Platelet Count 167 Mean Platelet Volume 9.4 Immature 0.500 H Granulocytes % Neutrophils % 77.1 H Lymphocytes % 15.7 Monocytes % 6.2 Eosinophils % 0.0 Basophils % 0.5 Nucleated Red Blood 0.0 Cells % Immature 0.020 Granulocytes # Neutrophils # 3.3 Lymphocytes # 0.7 L Monocytes # 0.3 Eosinophils # 0.0 Basophils # 0.0 Nucleated Red Blood 0.0 Cells # Test 11/22/18 12:38 11/22/18 14:15 C-Reactive Protein 34.5 H HIV (1&2) Antibody NEGATIVE Vancomycin Level 6.8 L Trough Medications Medication Current Medications IV Flush (NS 3 ml) 3 ml PER PROTOCOL IV ; Start 11/19/18 at 18:00 Ondansetron HCl (Zofran Inj) 4 mg Q6H PRN IV NAUSEA/VOMITING Last administered on 11/21/18at 12:05; Admin Dose 4 MG; Start 11/19/18 at 18:00 Acetaminophen (Tylenol Tab) 650 mg Q6H PRN PO .PAIN 1-3 OR TEMP Last administered on 11/21/18at 17:57; Admin Dose 650 MG; Start 11/19/18 at 18:00 Acetaminophen/ Hydrocodone Bitart ([place] (5/325)) 1 tab Q6H PRN PO .MOD PAIN 4- 6 Last administered on 11/20/18at 16:02; Admin Dose 1 TAB; Start 11/19/18 at 18:00 Morphine Sulfate (morphine) 2 mg Q4H PRN IV .SEVERE PAIN 7-10; Start 11/19/18 at 18:00 Docusate Sodium (Colace) 100 mg Q12H PRN PO .CONSTIPATION; Start 11/19/18 at 18:00 Magnesium Hydroxide (Milk Of Mag) 30 ml DAILY PRN PO .CONSTIPATION; Start 11/19/18 at 18:00 Pantoprazole (Protonix Tab) 40 mg DAILY@06 PO Last administered on 11/22/18 06:25; Admin Dose 40 MG; Start 11/20/18 at 06:00 Heparin Sodium (Porcine) (Heparin (5000 Units/1ml)) 5,000 unit Q12 SC Last administered on 11/22/18 09:04; Admin Dose 5,000 UNIT; Start 11/19/18 at 21:00 Sodium Chloride 1,000 ml @ 75 mls/hr [id number] IV Last administered on 11/22/18at 13:09; Admin Dose 75 MLS/HR; Start 11/19/18 at 17:44 Lorazepam (Ativan) 0.5 mg Q6H PRN IV ANXIETY; Start 11/19/18 at 18:00 Albuterol/ Ipratropium (Duoneb) 3 ml Q4H RESP THERAPY PRN HHN SHORTNESS OF BREATH; Start 11/19/18 at 18:00 Hydralazine HCl (Apresoline) 10 mg Q6H PRN IV ELEVATED BLOOD PRESSURE; Start 11/19/18 at 18:00 Nitroglycerin (Nitroglycerin (Sl Tab) 0.4 Mg) 1 tab Q5M PRN SL ANGINA; Start 11/19/18 at 18:00 Aspirin (Ecotrin) 325 mg DAILY PO Last administered on 11/22/18 08:57; Admin Dose 325 MG; Start 11/20/18 at 09:00 Calcitriol (Rocaltrol) 0.5 mcg DAILY PO Last administered on 11/22/18 08:56; Admin Dose 0.5 MCG; Start 11/20/18 at 09:00 Chlorthalidone (Hygroton) 25 mg DAILY PO Last administered on 11/22/18 08:57; Admin Dose 25 MG; Start 11/20/18 at 09:00 Atorvastatin Calcium (Lipitor) 80 mg HS PO Last administered on 11/21/18 20:57; Admin Dose 80 MG; Start 11/19/18 at 21:00 Levothyroxine Sodium (Synthroid) 150 mcg DAILY@06 PO Last administered on 11/22/18 06:25; Admin Dose 150 MCG; Start 11/21/18 at 06:00 Vancomycin HCl (Vanco Iv Per Pharmacy) VANCOMYCIN PER PHARMACY PER PROTOCOL XX ; Start 11/21/18 at 01:00 Vancomycin HCl 250 ml @ 125 mls/hr Q12H IVPB Last administered on 11/22/18at 15:29; Admin Dose 125 MLS/HR; Start 11/21/18 at 15:00; Stop 11/22/18 at 19:00 Ibuprofen (Motrin) 400 mg Q6H PRN PO MILD PAIN(1-3) OR TEMP>38C Last administered on 11/22/18 13:06; Admin Dose 400 MG; Start 11/22/18 at 05:00 Ceftriaxone Sodium 50 ml @ 100 mls/hr Q12H IVPB Last administered on 11/22/18 13:06; Admin Dose 100 MLS/HR; Start 11/22/18 at 11:00 Vancomycin HCl 1.5 gm/Sodium Chloride 250 ml @ 83.333 mls/ hr Q12H IVPB ; Start 11/23/18 at 00:00 ZAK GRAVES MD Nov 22, 2018 16:09
--- NOTE | 2018-11-22 16:54 | QN ---
Documentation Comment We agree with lumbar puncture. Ordered for CSF in addition to the previously ordered CSF tests: crypto AG, cocci AB, fungal culture, WNV, HSV 1/2 PCR, AFB culture, Bacterial AG profile, gram stain. Also ordered: Influenza A/B screen and empiric Tamiflu. D/c Ceftriaxone and start Merrem - ordered Request records from [facility] - patient was hospitalized there approximately 7 years ago and had an L/P done there - a nursing order was placed for this. Thank you. This was d/w patient, family at bedside, RN of the patient, and with Dr. oCsta in detail. MIC MARTINES NP Nov 22, 2018 16:54
[2018-11-22] MEDS ORDERED: LIDOCAINE 1% (MPF) 5 ML VIAL ONE (16:56)
[2018-11-22] MEDS: ACETAMINOPHEN 325 MG TAB PO PRN (18:10)
[2018-11-22] MEDS: ATORVASTATIN 80 MG TAB PO SCH (21:21)
[2018-11-22] MEDS: MEROPENEM 1 GM/50ML(PMX) 50 ML IVPB SCH (21:25)
[2018-11-22] MEDS: VANCOMYCIN HCL 1.5 GM in SOD CHLORIDE 0.9% 250 ML IVPB SCH (23:59)
[2018-11-23] VITALS (12 sets, daily range): BP systolic 109–135; BP diastolic 70–91; PULSE 86–109; RESP 16–20
[2018-11-23] MEDS: SOD CHLORIDE 0.45% 1,000 ML IV SCH ×3 (01:44→15:04)
[2018-11-23] MEDS: MEROPENEM 1 GM/50ML(PMX) 50 ML IVPB SCH ×3 (05:42→21:38)
[2018-11-23] MEDS: LEVOTHYROXINE 150 MCG TAB PO SCH (05:42)
[2018-11-23] MEDS: PANTOPRAZOLE (EC) 40 MG TAB PO SCH (05:42)
[2018-11-23] MEDS: CHLORTHALIDONE 25 MG TAB PO SCH (08:50)
[2018-11-23] MEDS: OSELTAMIVIR 75 MG CAP PO SCH (08:50)
[2018-11-23] MEDS: CALCITRIOL 0.25 MCG CAP PO SCH (08:50)
[2018-11-23] MEDS: ASPIRIN (EC) 325 MG TAB PO SCH (08:50)
[2018-11-23] MEDS: HEPARIN 5,000 UNIT/1 ML VIAL SC SCH (08:57)
[2018-11-23] MEDS ORDERED: POTASSIUM CHLORIDE 20 MEQ POWDER FOR ORAL SOLN PO ONE ×2 (09:30→16:30)
[2018-11-23] MEDS: IBUPROFEN 400 MG TAB PO PRN ×2 (10:27→21:38)
--- NOTE | 2018-11-23 11:10 | CONS ---
Assessment/Plan Assessment/Plan Hospital Course (Demo Recall) fever curve noted. LP relatively unimpressive. Consider WBC scan. will be in shortly. cont. abx fo rnow Consultation Date/Type/Reason Admit Date/Time Nov 21, 2018 at 09:13 Initial Consult Date Requesting Provider: EROS ANDERSEN Date/Time of Note DATE: 11/23/18 TIME: 11:10 Exam/Review of Systems Exam Vitals Vital Signs Date Temp Pulse Resp B/P (MAP) Pulse Ox O2 O2 Flow FiO2 Time Delivery Rate 11/23/18 109 08:03 11/23/18 100.9 16 121/80 98 Room Air 07:44 (94) 11/21/18 21 23:56 Intake and Output 11/22/18 11/22/18 11/23/18 1515:00 23:00 07:00 IntakeIntake Total 1100 ml 1050 ml 800 ml OutputOutput Total 600 ml BalanceBalance 1100 ml 1050 ml 200 ml Results Result Diagram: 11/23/18 0558 11/23/18 0558 Results 24hrs Laboratory Tests Test 11/22/18 12:38 11/22/18 14:15 11/22/18 17:27 11/23/18 05:58 C-Reactive Protein 34.5 H HIV (1&2) Antibody NEGATIVE Vancomycin Level 6.8 L Trough CSF Tubes Submitted 4 CSF Volume 4.0 CSF Appearance CLEAR CSF Color COLORLESS CSF WBC 4 CSF RBC 0 CSF Cell Count Tube TUBE#1 # CSF Mononuclear 100.0 Cells % (Auto) CSF Polynuclear WBCs 0.0 (%) CSF Glucose 64 CSF Total Protein 96 H White Blood Count 5.1 Red Blood Count 4.37 L Hemoglobin 12.8 L Hematocrit 37.8 L Mean Corpuscular 86.5 Volume Mean Corpuscular 29.3 Hemoglobin Mean Corpuscular 33.9 Hemoglobin Concent Red Cell 12.9 Distribution Width Platelet Count 189 Mean Platelet Volume 9.5 Immature 0.400 Granulocytes % Neutrophils % 77.2 H Lymphocytes % 14.9 L Monocytes % 7.3 Eosinophils % 0.0 Basophils % 0.2 Nucleated Red Blood 0.0 Cells % Immature 0.020 Granulocytes # Neutrophils # 3.9 Lymphocytes # 0.8 Monocytes # 0.4 Eosinophils # 0.0 Basophils # 0.0 Nucleated Red Blood 0.0 Cells # Sodium Level 141 Potassium Level 3.3 L Chloride Level 99 Carbon Dioxide Level 31 Anion Gap 11 Blood Urea Nitrogen 14 Creatinine 1.08 Est Glomerular > 60 Filtrat Rate mL/min Glucose Level 104 Calcium Level 7.0 L Medications Medication Current Medications IV Flush (NS 3 ml) 3 ml PER PROTOCOL IV ; Start 11/19/18 at 18:00 Ondansetron HCl (Zofran Inj) 4 mg Q6H PRN IV NAUSEA/VOMITING Last administered on 11/21/18at 12:05; Admin Dose 4 MG; Start 11/19/18 at 18:00 Acetaminophen (Tylenol Tab) 650 mg Q6H PRN PO .PAIN 1-3 OR TEMP Last administered on 11/22/18 18:10; Admin Dose 650 MG; Start 11/19/18 at 18:00 Acetaminophen/ Hydrocodone Bitart ([place] (5/325)) 1 tab Q6H PRN PO .MOD PAIN 4- 6 Last administered on 11/20/18 16:02; Admin Dose 1 TAB; Start 11/19/18 at 18:00 Morphine Sulfate (morphine) 2 mg Q4H PRN IV .SEVERE PAIN 7-10; Start 11/19/18 at 18:00 Docusate Sodium (Colace) 100 mg Q12H PRN PO .CONSTIPATION; Start 11/19/18 at 18:00 Magnesium Hydroxide (Milk Of Mag) 30 ml DAILY PRN PO .CONSTIPATION; Start 11/19/18 at 18:00 Pantoprazole (Protonix Tab) 40 mg DAILY@06 PO Last administered on 11/23/18 05:42; Admin Dose 40 MG; Start 11/20/18 at 06:00 Heparin Sodium (Porcine) (Heparin (5000 Units/1ml)) 5,000 unit Q12 SC Last administered on 11/23/18 08:57; Admin Dose 5,000 UNIT; Start 11/19/18 at 21:00 Sodium Chloride 1,000 ml @ 75 mls/hr [id number] IV Last administered on 11/23/18at 10:02; Admin Dose 75 MLS/HR; Start 11/19/18 at 17:44 Lorazepam (Ativan) 0.5 mg Q6H PRN IV ANXIETY; Start 11/19/18 at 18:00 Albuterol/ Ipratropium (Duoneb) 3 ml Q4H RESP THERAPY PRN HHN SHORTNESS OF BREATH; Start 11/19/18 at 18:00 Hydralazine HCl (Apresoline) 10 mg Q6H PRN IV ELEVATED BLOOD PRESSURE; Start 11/19/18 at 18:00 Nitroglycerin (Nitroglycerin (Sl Tab) 0.4 Mg) 1 tab Q5M PRN SL ANGINA; Start 11/19/18 at 18:00 Aspirin (Ecotrin) 325 mg DAILY PO Last administered on 11/23/18 08:50; Admin Dose 325 MG; Start 11/20/18 at 09:00 Calcitriol (Rocaltrol) 0.5 mcg DAILY PO Last administered on 11/23/18 08:50; Admin Dose 0.5 MCG; Start 11/20/18 at 09:00 Chlorthalidone (Hygroton) 25 mg DAILY PO Last administered on 11/23/18 08:50; Admin Dose 25 MG; Start 11/20/18 at 09:00 Atorvastatin Calcium (Lipitor) 80 mg HS PO Last administered on 11/22/18 21:21; Admin Dose 80 MG; Start 11/19/18 at 21:00 Levothyroxine Sodium (Synthroid) 150 mcg DAILY@06 PO Last administered on 11/23/18 05:42; Admin Dose 150 MCG; Start 11/21/18 at 06:00 Vancomycin HCl (Vanco Iv Per Pharmacy) VANCOMYCIN PER PHARMACY PER PROTOCOL XX ; Start 11/21/18 at 01:00 Ibuprofen (Motrin) 400 mg Q6H PRN PO MILD PAIN(1-3) OR TEMP>38C Last administered on 11/23/18 10:27; Admin Dose 400 MG; Start 11/22/18 at 05:00 Vancomycin HCl 1.5 gm/Sodium Chloride 250 ml @ 83.333 mls/ hr Q12H IVPB Last administered on 11/22/18 23:59; Admin Dose 83.333 MLS/HR; Start 11/23/18 at 00:00 Oseltamivir Phosphate (Tamiflu) 75 mg DAILY PO Last administered on 11/23/18 08:50; Admin Dose 75 MG; Start 11/23/18 at 09:00 Meropenem/Sodium Chloride 50 ml @ 100 mls/hr Q8 IVPB Last administered on 11/23/18 05:42; Admin Dose 100 MLS/HR; Start 11/22/18 at 22:00 ZAK GRAVES MD Nov 23, 2018 11:10
[2018-11-23] MEDS: VANCOMYCIN HCL 1.5 GM in SOD CHLORIDE 0.9% 250 ML IVPB SCH (12:15)
[2018-11-23] MEDS ORDERED: BARIUM SULF 2% 450 ML BTL (BERRY SMOOTHIE) PO ONE ×2 (14:00→20:30)
--- NOTE | 2018-11-23 14:12 | CONS ---
Assessment/Plan Assessment/Plan Hospital Course 57 yo M with hx of HTN and thyroid CA who presents following a transient alteration of awareness with ? LOC... for which neurology is consulted. The clinical picture is concerning for seizures. Transient global amnesia is a diagnosis of exclusion. Interval events: On 11/22, the pt was noted to be febrile with c/o headache, neck pain, and intermittent ams. Now s/p LP, which is grossly inconsistent w/ meningoencephalitis... MRI brain w/o contrast is reassuringly without acute intracranial pathology EEG is without epileptiform activity. Urine cx + P: Cont infectious workup and management per ID/primary Cont to defer AED therapy Ativan IV PRN seizure > 5 min or for cluster Consider MRI brain c/ contrast with thin cuts through the temporal lobes to further evaluate for a potential seizure focus, which may be done as an outpatient. The pt should refrain from driving Will follow clinically Consultation Date/Type/Reason Admit Date/Time Nov 21, 2018 at 09:13 Type of Consult Neurology Reason for Consultation TLOC; dysarthria Requesting Provider: EROS ANDERSEN Date/Time of Note DATE: 11/23/18 TIME: 14:12 24 HR Interval Summary Free Text/Dictation Continues acute care. S/p LP. Tmax 101.5 early this am. Exam Vital Signs Vitals Vital Signs Date Temp Pulse Resp B/P (MAP) Pulse Ox O2 O2 Flow FiO2 Time Delivery Rate 11/23/18 100 12:12 11/23/18 99.9 18 110/70 98 Room Air 11:32 (83) 11/21/18 21 23:56 Intake and Output 11/22/18 11/22/18 11/23/18 1515:00 23:00 07:00 IntakeIntake Total 1100 ml 1050 ml 800 ml OutputOutput Total 600 ml BalanceBalance 1100 ml 1050 ml 200 ml Exam PE: Gen Appearance: No Apparent Distress HEENT: Normocephalic Cardiovascular: Regular rate Lungs: Clear bilaterally Abdomen: Soft Extremities: Dry NE: The patient was alert and oriented. Language was normal. Fund of knowledge was normal. Pupils were equal and reactive to light. There was no afferent pupillary defect. Visual negron were normal. Funduscopic examination was limited.. Extra-ocular movements were full. Ptosis was absent. There was no nystagmus. Facial sensation was normal. Face was symmetric with normal strength. Hearing was intact. Palate movements were normal. Neck strength was normal. There was normal tongue bulk and speed of movement. Tone was normal. Muscle bulk was normal. I did not see fasciculations. I did not see signs of meningsmus. Arms and legs were strong. Vibration sensation was normal. Temperature and pinprick sensation was normal. Rapid alternating movements were normal. There was no dysmetria. There was no intention tremor. Gait was deferred due to bedrest. Arm and leg reflexes were 2+ and symmetric. Holloway's sign was absent. Plantar responses were flexor. BARB HICKMAN NP Nov 23, 2018 14:12 BERNADINE GAMBOA Nov 23, 2018 19:59
[2018-11-23] MEDS ORDERED: POTASSIUM CHLORIDE 100 ML IVPB ONE (16:00)
--- NOTE | 2018-11-23 16:27 | PN ---
Date/Time of Note Date/Time of Note DATE: 11/23/18 TIME: 13:56 Assessment/Plan VTE Prophylaxis Risk score (from Nsg)>0 risk: 1 SCD applied (from Nsg): Yes Pharmacological prophylaxis: LMWH Lines/Catheters IV Catheter Type (from Nrs): Peripheral IV Assessment/Plan Hospital Course S: still having fevers and has strong rigors and chills per family. Family is quite concerned about persistence of fevers without clear source O: GENERAL: lying in bed, answers questions appropriately, no acute distress. HEENT: Pupils equal, round, reactive to light. Extraocular muscles intact. NECK: Supple. No thyromegaly. LUNGS: Clear to auscultation bilaterally. CARDIOVASCULAR: S1, S2 heard. No murmurs, rubs or gallops. ABDOMEN: Soft, nontender, nondistended. Normal bowel sounds. No rebound or guarding. NEUROLOGIC: Normal strength and sensation in the upper and lower extremities bilaterally. No signs of any focal deficits. assessment and plan: 57-year-old man who had presented with altered mental status, staring gaze and slurred speech occurring while driving at a low speed earlier today, symptoms now resolved, with a prior history of hypertension and thyroid surgery; now with fevers and shaking chills # Fever of unknown origin -Since admission has had fevers and shaking chills despite abx therapy without clear source -UA x2 negative for leuk esterase or other e/o UTI. He denies dysuria. UCx appears contaminated. -blood cultures all remain negative so far -per family, patient had similar episode about 7 years ago and symptoms resolved after long hospitalization without any answers -CXR negative. No cough, dyspnea, or other symptoms of lower resp tract infection. -No photophobia, headache but has minimal neck pain -HIV negative (x2) -TTE done, no vegetations -No abdominal pain, diarrhea. -Patient on empiric abx per ID as well as tamiflu -patient also presented with what could have been a seizure and he may have an encephalitis ??? -will also get CT CAP as part of FUO workup -add acyclovir? will get MRI with contrast, hepatitis serology -No hx of recent travel re: possible mosquito borne disease? -f/u records from [facility] from 7 years ago if available # Altered mental status and staring gaze and slurred speech-symptoms resolved no w - patient has had no further episodes. -seizures ? secondary to fever or associated with underlying cause? - CT head, MRI brain negative for stroke - Continue high-dose aspirin. - Neurology follow # Hypertension - Currently normotensive on chlorthalidone # History of thyroid surgery., reason? -He is on Levoxyl as well, free T4 slightly elevated, TSH slightly low. -levothyroxine dose decreased from 175 to 150 mcg Result Diagram: 11/23/18 0558 11/23/18 0558 Results 24hrs Laboratory Tests Test 11/22/18 14:15 11/22/18 17:27 11/23/18 05:58 Vancomycin Level Trough 6.8 L CSF Tubes Submitted 4 CSF Volume 4.0 CSF Appearance CLEAR CSF Color COLORLESS CSF WBC 4 CSF RBC 0 CSF Cell Count Tube # TUBE#1 CSF Mononuclear Cells % (Auto) 100.0 CSF Polynuclear WBCs (%) 0.0 CSF Glucose 64 CSF Total Protein 96 H White Blood Count 5.1 Red Blood Count 4.37 L Hemoglobin 12.8 L Hematocrit 37.8 L Mean Corpuscular Volume 86.5 Mean Corpuscular Hemoglobin 29.3 Mean Corpuscular Hemoglobin Concent 33.9 Red Cell Distribution Width 12.9 Platelet Count 189 Mean Platelet Volume 9.5 Immature Granulocytes % 0.400 Neutrophils % 77.2 H Lymphocytes % 14.9 L Monocytes % 7.3 Eosinophils % 0.0 Basophils % 0.2 Nucleated Red Blood Cells % 0.0 Immature Granulocytes # 0.020 Neutrophils # 3.9 Lymphocytes # 0.8 Monocytes # 0.4 Eosinophils # 0.0 Basophils # 0.0 Nucleated Red Blood Cells # 0.0 Sodium Level 141 Potassium Level 3.3 L Chloride Level 99 Carbon Dioxide Level 31 Anion Gap 11 Blood Urea Nitrogen 14 Creatinine 1.08 Est Glomerular Filtrat Rate mL/min > 60 Glucose Level 104 Calcium Level 7.0 L Exam/Review of Systems Exam Vitals Vital Signs Date Temp Pulse Resp B/P (MAP) Pulse Ox O2 O2 Flow FiO2 Time Delivery Rate 11/23/18 100 12:12 11/23/18 99.9 18 110/70 98 Room Air 11:32 (83) 11/21/18 21 23:56 Intake and Output 11/22/18 11/22/18 11/23/18 1515:00 23:00 07:00 IntakeIntake Total 1100 ml 1050 ml 800 ml OutputOutput Total 600 ml BalanceBalance 1100 ml 1050 ml 200 ml Results Results 24hrs Laboratory Tests Test 11/22/18 14:15 11/22/18 17:27 11/23/18 05:58 Vancomycin Level Trough 6.8 L CSF Tubes Submitted 4 CSF Volume 4.0 CSF Appearance CLEAR CSF Color COLORLESS CSF WBC 4 CSF RBC 0 CSF Cell Count Tube # TUBE#1 CSF Mononuclear Cells % (Auto) 100.0 CSF Polynuclear WBCs (%) 0.0 CSF Glucose 64 CSF Total Protein 96 H White Blood Count 5.1 Red Blood Count 4.37 L Hemoglobin 12.8 L Hematocrit 37.8 L Mean Corpuscular Volume 86.5 Mean Corpuscular Hemoglobin 29.3 Mean Corpuscular Hemoglobin Concent 33.9 Red Cell Distribution Width 12.9 Platelet Count 189 Mean Platelet Volume 9.5 Immature Granulocytes % 0.400 Neutrophils % 77.2 H Lymphocytes % 14.9 L Monocytes % 7.3 Eosinophils % 0.0 Basophils % 0.2 Nucleated Red Blood Cells % 0.0 Immature Granulocytes # 0.020 Neutrophils # 3.9 Lymphocytes # 0.8 Monocytes # 0.4 Eosinophils # 0.0 Basophils # 0.0 Nucleated Red Blood Cells # 0.0 Sodium Level 141 Potassium Level 3.3 L Chloride Level 99 Carbon Dioxide Level 31 Anion Gap 11 Blood Urea Nitrogen 14 Creatinine 1.08 Est Glomerular Filtrat Rate mL/min > 60 Glucose Level 104 Calcium Level 7.0 L Medications Medication Current Medications IV Flush (NS 3 ml) 3 ml PER PROTOCOL IV ; Start 11/19/18 at 18:00 Ondansetron HCl (Zofran Inj) 4 mg Q6H PRN IV NAUSEA/VOMITING Last administered on 11/21/18at 12:05; Admin Dose 4 MG; Start 11/19/18 at 18:00 Acetaminophen (Tylenol Tab) 650 mg Q6H PRN PO .PAIN 1-3 OR TEMP Last administered on 11/22/18at 18:10; Admin Dose 650 MG; Start 11/19/18 at 18:00 Acetaminophen/ Hydrocodone Bitart ([place] (5/325)) 1 tab Q6H PRN PO .MOD PAIN 4- 6 Last administered on 11/20/18at 16:02; Admin Dose 1 TAB; Start 11/19/18 at 18:00 Morphine Sulfate (morphine) 2 mg Q4H PRN IV .SEVERE PAIN 7-10; Start 11/19/18 at 18:00 Docusate Sodium (Colace) 100 mg Q12H PRN PO .CONSTIPATION; Start 11/19/18 at 18:00 Magnesium Hydroxide (Milk Of Mag) 30 ml DAILY PRN PO .CONSTIPATION; Start 11/19/18 at 18:00 Pantoprazole (Protonix Tab) 40 mg DAILY@06 PO Last administered on 11/23/18at 05:42; Admin Dose 40 MG; Start 11/20/18 at 06:00 Heparin Sodium (Porcine) (Heparin (5000 Units/1ml)) 5,000 unit Q12 SC Last administered on 11/23/18 08:57; Admin Dose 5,000 UNIT; Start 11/19/18 at 21:00 Sodium Chloride 1,000 ml @ 75 mls/hr [id number] IV Last administered on 11/23/18at 10:02; Admin Dose 75 MLS/HR; Start 11/19/18 at 17:44 Lorazepam (Ativan) 0.5 mg Q6H PRN IV ANXIETY; Start 11/19/18 at 18:00 Albuterol/ Ipratropium (Duoneb) 3 ml Q4H RESP THERAPY PRN HHN SHORTNESS OF BREATH; Start 11/19/18 at 18:00 Hydralazine HCl (Apresoline) 10 mg Q6H PRN IV ELEVATED BLOOD PRESSURE; Start 11/19/18 at 18:00 Nitroglycerin (Nitroglycerin (Sl Tab) 0.4 Mg) 1 tab Q5M PRN SL ANGINA; Start 11/19/18 at 18:00 Aspirin (Ecotrin) 325 mg DAILY PO Last administered on 11/23/18at 08:50; Admin Dose 325 MG; Start 11/20/18 at 09:00 Calcitriol (Rocaltrol) 0.5 mcg DAILY PO Last administered on 11/23/18 08:50; Admin Dose 0.5 MCG; Start 11/20/18 at 09:00 Chlorthalidone (Hygroton) 25 mg DAILY PO Last administered on 11/23/18at 08:50; Admin Dose 25 MG; Start 11/20/18 at 09:00 Atorvastatin Calcium (Lipitor) 80 mg HS PO Last administered on 11/22/18 21:21; Admin Dose 80 MG; Start 11/19/18 at 21:00 Levothyroxine Sodium (Synthroid) 150 mcg DAILY@06 PO Last administered on 11/23/18 05:42; Admin Dose 150 MCG; Start 11/21/18 at 06:00 Vancomycin HCl (Vanco Iv Per Pharmacy) VANCOMYCIN PER PHARMACY PER PROTOCOL XX ; Start 11/21/18 at 01:00 Ibuprofen (Motrin) 400 mg Q6H PRN PO MILD PAIN(1-3) OR TEMP>38C Last administered on 11/23/18 10:27; Admin Dose 400 MG; Start 11/22/18 at 05:00 Vancomycin HCl 1.5 gm/Sodium Chloride 250 ml @ 83.333 mls/ hr Q12H IVPB Last administered on 11/23/18 12:15; Admin Dose 83.333 MLS/HR; Start 11/23/18 at 00:00 Oseltamivir Phosphate (Tamiflu) 75 mg DAILY PO Last administered on 11/23/18 08:50; Admin Dose 75 MG; Start 11/23/18 at 09:00 Meropenem/Sodium Chloride 50 ml @ 100 mls/hr Q8 IVPB Last administered on 11/23/18 05:42; Admin Dose 100 MLS/HR; Start 11/22/18 at 22:00 ELLE NIEVES Nov 23, 2018 16:11
--- NOTE | 2018-11-23 17:08 | CONS ---
Assessment/Plan Assessment/Plan Hospital Course (Demo Recall) 1. Fever of unclear origin R: chlamydia pna (psittacosis) eval; add empiric doxy vanco/merrem-cont. for now f/u CT scans consider [facility] WBC scan if CTs negative resp viral panel f/u hiv viral load cocci, crypto, histo, malaria screen, quant gold, beta d glucan await procalc more esoteric w/u to be considered as above resuts return Consultation Date/Type/Reason Admit Date/Time Nov 21, 2018 at 09:13 Date of Consultation: Nov 23, 2018 Type of Consult ID Reason for Consultation FEVERS Requesting Provider: BEN AVALOS MD Date/Time of Note DATE: 11/23/18 TIME: 16:58 Hx of Present Illness 57 YO male with past medical history of hypertension and thyroid surgery admitted after onset of ams and fevers. He has had extensive w/u including MRIs, CTS and most recently LP. He has complained of intermittent VELÁSQUEZ but his LP results were not markedly impressive for meningitis albeit the protein was noted to be somewhat elevated. He is now scheduled for CT chest/abdomen/pelvis and WBC is being considered. He has been on broad spectrum abx. HIV viral load pending and ab negative. Influenza screen negative. Interestingly, he notes a pigeon exposure. Constitutional: chills, febrile Eyes: no complaints ENT: no complaints Respiratory: no complaints Cardiovascular: no complaints Gastrointestinal: no complaints Genitourinary: no complaints Musculoskeletal: no complaints Skin: no complaints Neurologic: no complaints Past Medical History Home Meds Reported Medications Calcium Carbonate/Vitamin D3 ([place] 500+D Tablet) 1 Each Tablet, 2 EACH PO BID, TAB 11/19/18 Calcitriol* (Calcitriol*) 0.5 Mcg Capsule, 0.5 MCG PO DAILY, CAP 11/19/18 Levothyroxine Sodium* (Levoxyl*) 175 Mcg Tablet, 175 MCG PO BEFORE BREAKFAST, #30 TAB 11/19/18 Chlorthalidone* (Chlorthalidone*) 25 Mg Tablet, 25 MG PO DAILY, TAB 11/19/18 Discontinued Reported Medications Calcium Carbonate ([id number]) 500 Mg Tablet, 1000 MG PO BID, TAB 08/03/16 Metoprolol Tartrate* (Lopressor*) 50 Mg Tab, 50 MG PO BID, #60 TAB 08/03/16 Calcitriol* (Calcitriol*) 0.5 Mcg Capsule, 0.5 MCG PO BID, CAP 08/03/16 Citalopram Hydrobromide* (Citalopram Hydrobromide*) 10 Mg Tablet, 10 MG PO DAILY, #30 TAB 08/03/16 Lisinopril/Hydrochlorothiazide (Lisinopril-Hctz 20-25 mg Tab) 1 Each Tablet, 1 EACH PO DAILY, TAB 08/03/16 Levothyroxine Sodium* (Levothyroxine Sodium*) 175 Mcg Tablet, 175 MCG PO BEFORE BREAKFAST, #30 TAB 08/03/16 Aspirin* (Aspirin* EC) 81 Mg Tablet.dr, 81 MG PO DAILY, TAB 08/03/16 Discontinued Scripts Tamsulosin Hcl* (Flomax*) 0.4 Mg Cap.er.24h, 0.4 MG PO QPM, #30 CAP Prov:ELIZABETH YI PA-C 04/16/17 Ondansetron (Ondansetron Odt) 4 Mg Tab.rapdis, 4 MG PO Q6H PRN for NAUSEA AND/OR VOMITING, #10 TAB Prov:ELIZABETH YI PA-C 04/16/17 Hydrocodone/Acetaminophen ([place] 5-325 Tablet) 1 Each Tablet, 1 TAB PO Q6H PRN for PAIN, #10 TAB Prov:ELIZABETH YI PA-C 04/16/17 Mag Hydrox/Al Hydrox/Simeth (Maalox Advanced Suspension) 355 Ml Oral.susp, 2 TSP PO TID for PAIN, #24 OZ Prov:LAMONT MALDONADO MD 08/03/16 Ibuprofen* (Ibuprofen*) 600 Mg Tablet, 600 MG PO Q8 for PAIN AND/OR INFLAMM ATION, #30 TAB Prov:LAMONT MALDONADO MD 08/03/16 Medications Current Medications IV Flush (NS 3 ml) 3 ml PER PROTOCOL IV ; Start 11/19/18 at 18:00 Ondansetron HCl (Zofran Inj) 4 mg Q6H PRN IV NAUSEA/VOMITING Last administered on 11/21/18at 12:05; Admin Dose 4 MG; Start 11/19/18 at 18:00 Acetaminophen (Tylenol Tab) 650 mg Q6H PRN PO .PAIN 1-3 OR TEMP Last administered on 11/22/18at 18:10; Admin Dose 650 MG; Start 11/19/18 at 18:00 Acetaminophen/ Hydrocodone Bitart ([place] (5/325)) 1 tab Q6H PRN PO .MOD PAIN 4- 6 Last administered on 11/20/18at 16:02; Admin Dose 1 TAB; Start 11/19/18 at 18:00 Morphine Sulfate (morphine) 2 mg Q4H PRN IV .SEVERE PAIN 7-10; Start 11/19/18 at 18:00 Docusate Sodium (Colace) 100 mg Q12H PRN PO .CONSTIPATION; Start 11/19/18 at 18:00 Magnesium Hydroxide (Milk Of Mag) 30 ml DAILY PRN PO .CONSTIPATION; Start 11/19/18 at 18:00 Pantoprazole (Protonix Tab) 40 mg DAILY@06 PO Last administered on 11/23/18at 05:42; Admin Dose 40 MG; Start 11/20/18 at 06:00 Sodium Chloride 1,000 ml @ 75 mls/hr [id number] IV Last administered on 11/23/18at 10:02; Admin Dose 75 MLS/HR; Start 11/19/18 at 17:44 Lorazepam (Ativan) 0.5 mg Q6H PRN IV ANXIETY; Start 11/19/18 at 18:00 Albuterol/ Ipratropium (Duoneb) 3 ml Q4H RESP THERAPY PRN HHN SHORTNESS OF BREATH; Start 11/19/18 at 18:00 Hydralazine HCl (Apresoline) 10 mg Q6H PRN IV ELEVATED BLOOD PRESSURE; Start 11/19/18 at 18:00 Nitroglycerin (Nitroglycerin (Sl Tab) 0.4 Mg) 1 tab Q5M PRN SL ANGINA; Start 11/19/18 at 18:00 Aspirin (Ecotrin) 325 mg DAILY PO Last administered on 11/23/18 08:50; Admin Dose 325 MG; Start 11/20/18 at 09:00 Calcitriol (Rocaltrol) 0.5 mcg DAILY PO Last administered on 11/23/18 08:50; Admin Dose 0.5 MCG; Start 11/20/18 at 09:00 Chlorthalidone (Hygroton) 25 mg DAILY PO Last administered on 11/23/18 08:50; Admin Dose 25 MG; Start 11/20/18 at 09:00 Atorvastatin Calcium (Lipitor) 80 mg HS PO Last administered on 11/22/18at 21:21; Admin Dose 80 MG; Start 11/19/18 at 21:00 Levothyroxine Sodium (Synthroid) 150 mcg DAILY@06 PO Last administered on at 05:42; Admin Dose 150 MCG; Start 11/21/18 at 06:00 Vancomycin HCl (Vanco Iv Per Pharmacy) VANCOMYCIN PER PHARMACY PER PROTOCOL XX ; Start 11/21/18 at 01:00 Ibuprofen (Motrin) 400 mg Q6H PRN PO MILD PAIN(1-3) OR TEMP>38C Last administered on 11/23/18at 10:27; Admin Dose 400 MG; Start 11/22/18 at 05:00 Vancomycin HCl 1.5 gm/Sodium Chloride 250 ml @ 83.333 mls/ hr Q12H IVPB Last administered on 11/23/18at 12:15; Admin Dose 83.333 MLS/HR; Start 11/23/18 at 00:00 Oseltamivir Phosphate (Tamiflu) 75 mg DAILY PO Last administered on 11/23/18at 08:50; Admin Dose 75 MG; Start 11/23/18 at 09:00 Meropenem/Sodium Chloride 50 ml @ 100 mls/hr Q8 IVPB Last administered on 11/23/18at 15:10; Admin Dose 100 MLS/HR; Start 11/22/18 at 22:00 Enoxaparin Sodium (Lovenox) 40 mg QHS SC ; Start 11/23/18 at 21:00 Allergies: Coded Allergies: No Known Allergy (Unverified , 11/19/18) Social History Smoking Status: Former smoker Exam/Review of Systems Exam Vitals Vital Signs Date Temp Pulse Resp B/P (MAP) Pulse Ox O2 O2 Flow FiO2 Time Delivery Rate 11/23/18 86 16:05 11/23/18 97.7 18 109/73 95 Room Air 15:26 (85) 11/21/18 21 23:56 Intake and Output 11/22/18 11/22/18 11/23/18 1515:00 23:00 07:00 IntakeIntake Total 1100 ml 1050 ml 800 ml OutputOutput Total 600 ml BalanceBalance 1100 ml 1050 ml 200 ml Constitutional: alert, oriented, well developed Psych: no complaints, nl mood/affect Head: normocephalic, atraumatic Eyes: nl conjunctiva, EOMI, nl lids, nl sclera, PERRL ENMT: nl external ears & nose, nl lips & teeth, nl nasal mucosa & septum Respiratory: clear to auscultation, normal air movement Cardiovascular: regular rate and rhythm Gastrointestinal: soft Neurological: [employer]GER II-XII intact Results Result Diagram: 11/23/1858 11/23/18 0558 Results 24hrs Laboratory Tests Test 11/22/18 17:27 11/23/18 05:58 CSF Tubes Submitted 4 CSF Volume 4.0 CSF Appearance CLEAR CSF Color COLORLESS CSF WBC 4 CSF RBC 0 CSF Cell Count Tube # TUBE#1 CSF Mononuclear Cells % (Auto) 100.0 CSF Polynuclear WBCs (%) 0.0 CSF Glucose 64 CSF Total Protein 96 H White Blood Count 5.1 Red Blood Count 4.37 L Hemoglobin 12.8 L Hematocrit 37.8 L Mean Corpuscular Volume 86.5 Mean Corpuscular Hemoglobin 29.3 Mean Corpuscular Hemoglobin Concent 33.9 Red Cell Distribution Width 12.9 Platelet Count 189 Mean Platelet Volume 9.5 Immature Granulocytes % 0.400 Neutrophils % 77.2 H Lymphocytes % 14.9 L Monocytes % 7.3 Eosinophils % 0.0 Basophils % 0.2 Nucleated Red Blood Cells % 0.0 Immature Granulocytes # 0.020 Neutrophils # 3.9 Lymphocytes # 0.8 Monocytes # 0.4 Eosinophils # 0.0 Basophils # 0.0 Nucleated Red Blood Cells # 0.0 Sodium Level 141 Potassium Level 3.3 L Chloride Level 99 Carbon Dioxide Level 31 Anion Gap 11 Blood Urea Nitrogen 14 Creatinine 1.08 Est Glomerular Filtrat Rate mL/min > 60 Glucose Level 104 Calcium Level 7.0 L Medications Medication Current Medications IV Flush (NS 3 ml) 3 ml PER PROTOCOL IV ; Start 11/19/18 at 18:00 Ondansetron HCl (Zofran Inj) 4 mg Q6H PRN IV NAUSEA/VOMITING Last administered on 11/21/18at 12:05; Admin Dose 4 MG; Start 11/19/18 at 18:00 Acetaminophen (Tylenol Tab) 650 mg Q6H PRN PO .PAIN 1-3 OR TEMP Last administered on 11/22/18at 18:10; Admin Dose 650 MG; Start 11/19/18 at 18:00 Acetaminophen/ Hydrocodone Bitart ([place] (5/325)) 1 tab Q6H PRN PO .MOD PAIN 4- 6 Last administered on 11/20/18at 16:02; Admin Dose 1 TAB; Start 11/19/18 at 18:00 Morphine Sulfate (morphine) 2 mg Q4H PRN IV .SEVERE PAIN 7-10; Start 11/19/18 at 18:00 Docusate Sodium (Colace) 100 mg Q12H PRN PO .CONSTIPATION; Start 11/19/18 at 18:00 Magnesium Hydroxide (Milk Of Mag) 30 ml DAILY PRN PO .CONSTIPATION; Start 11/19/18 at 18:00 Pantoprazole (Protonix Tab) 40 mg DAILY@06 PO Last administered on 11/23/18at 05:42; Admin Dose 40 MG; Start 11/20/18 at 06:00 Sodium Chloride 1,000 ml @ 75 mls/hr [id number] IV Last administered on 11/23/18at 10:02; Admin Dose 75 MLS/HR; Start 11/19/18 at 17:44 Lorazepam (Ativan) 0.5 mg Q6H PRN IV ANXIETY; Start 11/19/18 at 18:00 Albuterol/ Ipratropium (Duoneb) 3 ml Q4H RESP THERAPY PRN HHN SHORTNESS OF BREATH; Start 11/19/18 at 18:00 Hydralazine HCl (Apresoline) 10 mg Q6H PRN IV ELEVATED BLOOD PRESSURE; Start 11/19/18 at 18:00 Nitroglycerin (Nitroglycerin (Sl Tab) 0.4 Mg) 1 tab Q5M PRN SL ANGINA; Start 11/19/18 at 18:00 Aspirin (Ecotrin) 325 mg DAILY PO Last administered on 11/23/18at 08:50; Admin Dose 325 MG; Start 11/20/18 at 09:00 Calcitriol (Rocaltrol) 0.5 mcg DAILY PO Last administered on 11/23/18at 08:50; Admin Dose 0.5 MCG; Start 11/20/18 at 09:00 Chlorthalidone (Hygroton) 25 mg DAILY PO Last administered on 11/23/18at 08:50; Admin Dose 25 MG; Start 11/20/18 at 09:00 Atorvastatin Calcium (Lipitor) 80 mg HS PO Last administered on 11/22/18 21:21; Admin Dose 80 MG; Start 11/19/18 at 21:00 Levothyroxine Sodium (Synthroid) 150 mcg DAILY@06 PO Last administered on 11/23/18at 05:42; Admin Dose 150 MCG; Start 11/21/18 at 06:00 Vancomycin HCl (Vanco Iv Per Pharmacy) VANCOMYCIN PER PHARMACY PER PROTOCOL XX ; Start 11/21/18 at 01:00 Ibuprofen (Motrin) 400 mg Q6H PRN PO MILD PAIN(1-3) OR TEMP>38C Last administered on 11/23/18 10:27; Admin Dose 400 MG; Start 11/22/18 at 05:00 Vancomycin HCl 1.5 gm/Sodium Chloride 250 ml @ 83.333 mls/ hr Q12H IVPB Last administered on 11/23/18at 12:15; Admin Dose 83.333 MLS/HR; Start 11/23/18 at 00:00 Oseltamivir Phosphate (Tamiflu) 75 mg DAILY PO Last administered on 11/23/18at 08:50; Admin Dose 75 MG; Start 11/23/18 at 09:00 Meropenem/Sodium Chloride 50 ml @ 100 mls/hr Q8 IVPB Last administered on 11/23/18at 15:10; Admin Dose 100 MLS/HR; Start 11/22/18 at 22:00 Enoxaparin Sodium (Lovenox) 40 mg QHS SC ; Start 11/23/18 at 21:00 ZAK GRAVES MD Nov 23, 2018 17:08
[2018-11-23] MEDS: ONDANSETRON 4 MG INJ IV PRN (19:49)
[2018-11-23] MEDS ORDERED: BARIUM SULFATE 135 ML (E-Z HD) PO ONE (20:30)
[2018-11-23] MEDS: DOXYCYCLINE 100 MG TAB PO SCH (21:37)
[2018-11-23] MEDS: ATORVASTATIN 80 MG TAB PO SCH (21:38)
[2018-11-23] MEDS: ENOXAPARIN 40 MG/0.4 ML SYG SC SCH (21:55)
[2018-11-24] VITALS (11 sets, daily range): BP systolic 106–125; BP diastolic 60–80; PULSE 79–99; RESP 18
[2018-11-24] MEDS: VANCOMYCIN HCL 1.5 GM in SOD CHLORIDE 0.9% 250 ML IVPB SCH ×2 (01:16→13:07)
[2018-11-24] MEDS ORDERED: BARIUM SULF 2% 450 ML BTL (BERRY SMOOTHIE) PO ONE (01:30)
[2018-11-24] MEDS: SOD CHLORIDE 0.45% 1,000 ML IV SCH ×2 (04:24→10:40)
[2018-11-24] MEDS: PANTOPRAZOLE (EC) 40 MG TAB PO SCH (06:07)
[2018-11-24] MEDS: LEVOTHYROXINE 150 MCG TAB PO SCH (06:07)
[2018-11-24] MEDS: MEROPENEM 1 GM/50ML(PMX) 50 ML IVPB SCH ×3 (06:08→21:34)
[2018-11-24] MEDS: CHLORTHALIDONE 25 MG TAB PO SCH (08:29)
[2018-11-24] MEDS: ASPIRIN (EC) 325 MG TAB PO SCH (08:29)
[2018-11-24] MEDS: DOXYCYCLINE 100 MG TAB PO SCH ×2 (08:29→21:33)
[2018-11-24] MEDS: OSELTAMIVIR 75 MG CAP PO SCH (08:29)
[2018-11-24] MEDS: CALCITRIOL 0.5 MCG CAPSULE PO SCH (10:39)
--- NOTE | 2018-11-24 13:09 | PN ---
Date/Time of Note Date/Time of Note DATE: 11/24/18 TIME: 13:08 Assessment/Plan VTE Prophylaxis Risk score (from Nsg)>0 risk: 1 SCD applied (from Nsg): Yes Pharmacological prophylaxis: NA/contraindicated Pharm contraindication: low risk/ambulating Lines/Catheters IV Catheter Type (from Nrs): Peripheral IV Assessment/Plan Hospital Course S: having diarrhea, has had 4 bouts today O: GENERAL: lying in bed, answers questions appropriately, no acute distress. HEENT: Pupils equal, round, reactive to light. Extraocular muscles intact. NECK: Supple. No thyromegaly. LUNGS: Clear to auscultation bilaterally. CARDIOVASCULAR: S1, S2 heard. No murmurs, rubs or gallops. ABDOMEN: Soft, nontender, nondistended. Normal bowel sounds. No rebound or guarding. NEUROLOGIC: Normal strength and sensation in the upper and lower extremities bilaterally. No signs of any focal deficits. assessment and plan: 57-year-old man who had presented with altered mental status, staring gaze and slurred speech occurring while driving at a low speed earlier today, symptoms now resolved, with a prior history of hypertension and thyroid surgery; now with fevers and shaking chills # Fever of unknown origin -Since admission has had fevers and shaking chills despite abx therapy without clear source -UA x2 negative for leuk esterase or other e/o UTI. He denies dysuria. UCx appears contaminated. -blood cultures all remain negative so far -per family, patient had similar episode about 7 years ago and symptoms resolved after long hospitalization without any answers, records reviewed and in chart, patient was managed with high fevers and headaches and was treated for a possible viral meningoencephalitis when all studies came back non conclusive, he was discharged once symptoms improved -CXR negative. No cough, dyspnea, or other symptoms of lower resp tract infec tion. -No photophobia, headache but has minimal neck pain -HIV negative (x2) -TTE done, no vegetations -No abdominal pain, diarrhea. -Patient on empiric abx per ID as well as tamiflu -patient also presented with what could have been a seizure -MRI brain with and without contrast was negative -No hx of recent travel but malaria parasite was negative -Patient however has a hx of thyroidectomy for thyroid CA 4 years ago and has been on Levoxyl since. 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 history of antithyroid drug therapy for hyperthyroidism, recent thyroid surgery , recent exposure to iodine-containing contrast). If the TSH is below normal, free T4 and T3 should be measured. The degree of hyperthyroidism (elevation of T4 and/or T3 and suppression of TSH) in patients with thyroid storm is, in general, comparable with that in patients with uncomplicated overt hyperthyroidism. Thus, the degree of hyperthyroidism is not a criterion for diagnosing thyroid storm. Using scoring system in Up to date, patient has a conservative score of at least 40 and to be aggressive , about 70, A score of 45 is needed to make the diagnosis. -will therefore get Endocrinology consult # Altered mental status and staring gaze and slurred speech-symptoms resolved now - patient has had no further episodes. -seizures ? secondary to fever or associated with underlying cause? - CT head, MRI brain negative for stroke - Continue high-dose aspirin. - Neurology following # Hypertension - Currently normotensive on chlorthalidone # Concern for developing RLL PNA on CT -ID managing abx # Diarrhea -patient on abx, related to #1 vs c-diff? -send samples, continue gentle IV hydration Dispo: -tthis is quite interesting, will get Endocrinology consult and see what they think. D/c leoxyl ? will await their recs, also spoke with ID, he recommends continuing abx for now till definitive diagnosis is made -plan of care has been discussed with family in detail. Result Diagram: 11/24/18 0602 11/24/18 0603 Results 24hrs Laboratory Tests Test 11/23/18 16:39 11/24/18 06:02 11/24/18 06:03 Creatine Kinase 229 H White Blood Count 5.2 Red Blood Count 4.35 L Hemoglobin 12.6 L Hematocrit 36.9 L Mean Corpuscular Volume 84.8 Mean Corpuscular Hemoglobin 29.0 Mean Corpuscular Hemoglobin Concent 34.1 Red Cell Distribution Width 13.0 Platelet Count 198 Mean Platelet Volume 9.3 Immature Granulocytes % 0.400 Neutrophils % 72.3 Lymphocytes % 17.1 Monocytes % 9.4 Eosinophils % 0.6 Basophils % 0.2 Nucleated Red Blood Cells % 0.0 Immature Granulocytes # 0.020 Neutrophils # 3.8 Lymphocytes # 0.9 Monocytes # 0.5 Eosinophils # 0.0 Basophils # 0.0 Nucleated Red Blood Cells # 0.0 Sodium Level 140 Potassium Level 3.4 L Chloride Level 101 Carbon Dioxide Level 27 Anion Gap 12 Blood Urea Nitrogen 15 Creatinine 0.99 Est Glomerular Filtrat Rate mL/min > 60 Glucose Level 110 Calcium Level 6.7 L Magnesium Level 1.8 Total Bilirubin 0.3 Direct Bilirubin 0.00 Indirect Bilirubin 0.3 Aspartate Amino Transf (AST/SGOT) 54 H Alanine Aminotransferase (ALT/SGPT) 46 Alkaline Phosphatase 60 Total Protein 6.4 Albumin 3.3 Hepatitis B Surface Antigen NEGATIVE Hepatitis B Core Total Antibody NEGATIVE Hepatitis C Antibody NEGATIVE Exam/Review of Systems Exam Vitals Vital Signs Date Temp Pulse Resp B/P (MAP) Pulse Ox O2 O2 Flow FiO2 Time Delivery Rate 11/24/18 88 12:01 11/24/18 99.6 18 108/69 98 Room Air 11:20 (82) 11/21/18 21 23:56 Intake and Output 11/23/18 11/23/18 11/24/18 1515:00 23:00 07:00 IntakeIntake Total 950 ml 1800 ml 2000 ml OutputOutput Total 800 ml BalanceBalance 950 ml 1800 ml 1200 ml Results Results 24hrs Laboratory Tests Test 11/23/18 16:39 11/24/18 06:02 11/24/18 06:03 Creatine Kinase 229 H White Blood Count 5.2 Red Blood Count 4.35 L Hemoglobin 12.6 L Hematocrit 36.9 L Mean Corpuscular Volume 84.8 Mean Corpuscular Hemoglobin 29.0 Mean Corpuscular Hemoglobin Concent 34.1 Red Cell Distribution Width 13.0 Platelet Count 198 Mean Platelet Volume 9.3 Immature Granulocytes % 0.400 Neutrophils % 72.3 Lymphocytes % 17.1 Monocytes % 9.4 Eosinophils % 0.6 Basophils % 0.2 Nucleated Red Blood Cells % 0.0 Immature Granulocytes # 0.020 Neutrophils # 3.8 Lymphocytes # 0.9 Monocytes # 0.5 Eosinophils # 0.0 Basophils # 0.0 Nucleated Red Blood Cells # 0.0 Sodium Level 140 Potassium Level 3.4 L Chloride Level 101 Carbon Dioxide Level 27 Anion Gap 12 Blood Urea Nitrogen 15 Creatinine 0.99 Est Glomerular Filtrat Rate mL/min > 60 Glucose Level 110 Calcium Level 6.7 L Magnesium Level 1.8 Total Bilirubin 0.3 Direct Bilirubin 0.00 Indirect Bilirubin 0.3 Aspartate Amino Transf (AST/SGOT) 54 H Alanine Aminotransferase (ALT/SGPT) 46 Alkaline Phosphatase 60 Total Protein 6.4 Albumin 3.3 Hepatitis B Surface Antigen NEGATIVE Hepatitis B Core Total Antibody NEGATIVE Hepatitis C Antibody NEGATIVE Medications Medication Current Medications IV Flush (NS 3 ml) 3 ml PER PROTOCOL IV ; Start 11/19/18 at 18:00 Ondansetron HCl (Zofran Inj) 4 mg Q6H PRN IV NAUSEA/VOMITING Last administered on 11/23/18at 19:49; Admin Dose 4 MG; Start 11/19/18 at 18:00 Acetaminophen (Tylenol Tab) 650 mg Q6H PRN PO .PAIN 1-3 OR TEMP Last administered on 11/22/18at 18:10; Admin Dose 650 MG; Start 11/19/18 at 18:00 Acetaminophen/ Hydrocodone Bitart ([place] (5/325)) 1 tab Q6H PRN PO .MOD PAIN 4- 6 Last administered on 11/20/18at 16:02; Admin Dose 1 TAB; Start 11/19/18 at 18:00 Morphine Sulfate (morphine) 2 mg Q4H PRN IV .SEVERE PAIN 7-10; Start 11/19/18 at 18:00 Docusate Sodium (Colace) 100 mg Q12H PRN PO .CONSTIPATION; Start 11/19/18 at 18:00 Magnesium Hydroxide (Milk Of Mag) 30 ml DAILY PRN PO .CONSTIPATION; Start 11/19/18 at 18:00 Pantoprazole (Protonix Tab) 40 mg DAILY@06 PO Last administered on 11/24/18at 06:07; Admin Dose 40 MG; Start 11/20/18 at 06:00 Sodium Chloride 1,000 ml @ 75 mls/hr [id number] IV Last administered on 11/24/18at 10:40; Admin Dose 75 MLS/HR; Start 11/19/18 at 17:44 Lorazepam (Ativan) 0.5 mg Q6H PRN IV ANXIETY; Start 11/19/18 at 18:00 Albuterol/ Ipratropium (Duoneb) 3 ml Q4H RESP THERAPY PRN HHN SHORTNESS OF BREATH; Start 11/19/18 at 18:00 Hydralazine HCl (Apresoline) 10 mg Q6H PRN IV ELEVATED BLOOD PRESSURE; Start 11/19/18 at 18:00 Nitroglycerin (Nitroglycerin (Sl Tab) 0.4 Mg) 1 tab Q5M PRN SL ANGINA; Start 11/19/18 at 18:00 Aspirin (Ecotrin) 325 mg DAILY PO Last administered on 11/24/18 08:29; Admin Dose 325 MG; Start 11/20/18 at 09:00 Chlorthalidone (Hygroton) 25 mg DAILY PO Last administered on 11/24/18 08:29; Admin Dose 25 MG; Start 11/20/18 at 09:00 Atorvastatin Calcium (Lipitor) 80 mg HS PO Last administered on 11/23/18 21:38; Admin Dose 80 MG; Start 11/19/18 at 21:00 Levothyroxine Sodium (Synthroid) 150 mcg DAILY@06 PO Last administered on 11/24/18 06:07; Admin Dose 150 MCG; Start 11/21/18 at 06:00 Vancomycin HCl (Vanco Iv Per Pharmacy) VANCOMYCIN PER PHARMACY PER PROTOCOL XX ; Start 11/21/18 at 01:00 Ibuprofen (Motrin) 400 mg Q6H PRN PO MILD PAIN(1-3) OR TEMP>38C Last administered on 11/23/18 21:38; Admin Dose 400 MG; Start 11/22/18 at 05:00 Vancomycin HCl 1.5 gm/Sodium Chloride 250 ml @ 83.333 mls/ hr Q12H IVPB Last administered on 11/24/18 01:16; Admin Dose 83.333 MLS/HR; Start 11/23/18 at 00:00 Oseltamivir Phosphate (Tamiflu) 75 mg DAILY PO Last administered on 11/24/18 08:29; Admin Dose 75 MG; Start 11/23/18 at 09:00 Meropenem/Sodium Chloride 50 ml @ 100 mls/hr Q8 IVPB Last administered on 11/24/18 06:08; Admin Dose 100 MLS/HR; Start 11/22/18 at 22:00 Enoxaparin Sodium (Lovenox) 40 mg QHS SC Last administered on 11/23/18at 21:55; Admin Dose 40 MG; Start 11/23/18 at 21:00 Doxycycline Hyclate (Vibramycin) 100 mg BID PO Last administered on 11/24/18at 08:29; Admin Dose 100 MG; Start 11/23/18 at 21:00 Calcitriol (Rocaltrol) 0.5 mcg DAILY PO Last administered on 11/24/18at 10:39; Admin Dose 0.5 MCG; Start 11/24/18 at 10:00 Miscellaneous Information (*Rx Drug Level Order Reminder*) 1 ONCE ONCE XX ; Start 11/24/18 at 23:00; Stop 11/24/18 at 23:01 ELLE NIEVES Nov 24, 2018 13:09
--- NOTE | 2018-11-24 13:34 | CONS ---
Assessment/Plan Assessment/Plan Hospital Course (Demo Recall) 1. Fever of unclear origin--interestingly the CT scan suggests rll pna, this in conjunction with his hx would suggest psittacosis as a signif. possibility 2. hx of previous neurocysticercosis R: chlamydia pna (psittacosis) serology pending; cont empiric doxy vanco/merrem-cont. for now complete 5 days tamiflu CHRISTIAN if fevers recur resp viral panel await cocci, crypto, histo, malaria screen, quant gold, beta d glucan, resp viral panel, procalc agree with consideration of endocrine eval more esoteric w/u to be considered as above results return--seems less needed now Consultation Date/Type/Reason Admit Date/Time Nov 21, 2018 at 09:13 Initial Consult Date Type of Consult ID Requesting Provider: BEN AVALOS MD Date/Time of Note DATE: 11/24/18 TIME: 13:31 24 HR Interval Summary Free Text/Dictation says feels better. d/w Dr. Macdonald at bedside Exam/Review of Systems Exam Vitals Vital Signs Date Temp Pulse Resp B/P (MAP) Pulse Ox O2 O2 Flow FiO2 Time Delivery Rate 11/24/18 88 12:01 11/24/18 99.6 18 108/69 98 Room Air 11:20 (82) 11/21/18 21 23:56 Intake and Output 11/23/18 11/23/18 11/24/18 1515:00 23:00 07:00 IntakeIntake Total 950 ml 1800 ml 2000 ml OutputOutput Total 800 ml BalanceBalance 950 ml 1800 ml 1200 ml Constitutional: alert, oriented, well developed Psych: no complaints, nl mood/affect Eyes: nl conjunctiva, EOMI, nl lids, nl sclera, PERRL ENMT: nl external ears & nose, nl lips & teeth, nl nasal mucosa & septum Cardiovascular: regular rate and rhythm, nl pulses Neurological: [employer]INE[employer] II-XII intact, nl mental status, nl speech, nl strength Results Result Diagram: 11/24/18 0602 11/24/18 0603 Results 24hrs Laboratory Tests Test 11/23/18 16:39 11/24/18 06:02 11/24/18 06:03 Creatine Kinase 229 H White Blood Count 5.2 Red Blood Count 4.35 L Hemoglobin 12.6 L Hematocrit 36.9 L Mean Corpuscular Volume 84.8 Mean Corpuscular Hemoglobin 29.0 Mean Corpuscular Hemoglobin Concent 34.1 Red Cell Distribution Width 13.0 Platelet Count 198 Mean Platelet Volume 9.3 Immature Granulocytes % 0.400 Neutrophils % 72.3 Lymphocytes % 17.1 Monocytes % 9.4 Eosinophils % 0.6 Basophils % 0.2 Nucleated Red Blood Cells % 0.0 Immature Granulocytes # 0.020 Neutrophils # 3.8 Lymphocytes # 0.9 Monocytes # 0.5 Eosinophils # 0.0 Basophils # 0.0 Nucleated Red Blood Cells # 0.0 Sodium Level 140 Potassium Level 3.4 L Chloride Level 101 Carbon Dioxide Level 27 Anion Gap 12 Blood Urea Nitrogen 15 Creatinine 0.99 Est Glomerular Filtrat Rate mL/min > 60 Glucose Level 110 Calcium Level 6.7 L Magnesium Level 1.8 Total Bilirubin 0.3 Direct Bilirubin 0.00 Indirect Bilirubin 0.3 Aspartate Amino Transf (AST/SGOT) 54 H Alanine Aminotransferase (ALT/SGPT) 46 Alkaline Phosphatase 60 Total Protein 6.4 Albumin 3.3 Hepatitis B Surface Antigen NEGATIVE Hepatitis B Core Total Antibody NEGATIVE Hepatitis C Antibody NEGATIVE Medications Medication Current Medications IV Flush (NS 3 ml) 3 ml PER PROTOCOL IV ; Start 11/19/18 at 18:00 Ondansetron HCl (Zofran Inj) 4 mg Q6H PRN IV NAUSEA/VOMITING Last administered on 11/23/18at 19:49; Admin Dose 4 MG; Start 11/19/18 at 18:00 Acetaminophen (Tylenol Tab) 650 mg Q6H PRN PO .PAIN 1-3 OR TEMP Last administered on 11/22/18at 18:10; Admin Dose 650 MG; Start 11/19/18 at 18:00 Acetaminophen/ Hydrocodone Bitart (Grimes (5/325)) 1 tab Q6H PRN PO .MOD PAIN 4- 6 Last administered on 11/20/18at 16:02; Admin Dose 1 TAB; Start 11/19/18 at 18:00 Morphine Sulfate (morphine) 2 mg Q4H PRN IV .SEVERE PAIN 7-10; Start 11/19/18 at 18:00 Docusate Sodium (Colace) 100 mg Q12H PRN PO .CONSTIPATION; Start 11/19/18 at 18:00 Magnesium Hydroxide (Milk Of Mag) 30 ml DAILY PRN PO .CONSTIPATION; Start 11/19/18 at 18:00 Pantoprazole (Protonix Tab) 40 mg DAILY@06 PO Last administered on 11/24/18at 06:07; Admin Dose 40 MG; Start 11/20/18 at 06:00 Sodium Chloride 1,000 ml @ 75 mls/hr [id number] IV Last administered on 11/24/18at 10:40; Admin Dose 75 MLS/HR; Start 11/19/18 at 17:44 Lorazepam (Ativan) 0.5 mg Q6H PRN IV ANXIETY; Start 11/19/18 at 18:00 Albuterol/ Ipratropium (Duoneb) 3 ml Q4H RESP THERAPY PRN HHN SHORTNESS OF BREATH; Start 11/19/18 at 18:00 Hydralazine HCl (Apresoline) 10 mg Q6H PRN IV ELEVATED BLOOD PRESSURE; Start 11/19/18 at 18:00 Nitroglycerin (Nitroglycerin (Sl Tab) 0.4 Mg) 1 tab Q5M PRN SL ANGINA; Start 11/19/18 at 18:00 Aspirin (Ecotrin) 325 mg DAILY PO Last administered on 11/24/18at 08:29; Admin Dose 325 MG; Start 11/20/18 at 09:00 Chlorthalidone (Hygroton) 25 mg DAILY PO Last administered on 11/24/18 08:29; Admin Dose 25 MG; Start 11/20/18 at 09:00 Atorvastatin Calcium (Lipitor) 80 mg HS PO Last administered on 11/23/18at 21:38 ; Admin Dose 80 MG; Start 11/19/18 at 21:00 Levothyroxine Sodium (Synthroid) 150 mcg DAILY@06 PO Last administered on 11/24/18 06:07; Admin Dose 150 MCG; Start 11/21/18 at 06:00 Vancomycin HCl (Vanco Iv Per Pharmacy) VANCOMYCIN PER PHARMACY PER PROTOCOL XX ; Start 11/21/18 at 01:00 Ibuprofen (Motrin) 400 mg Q6H PRN PO MILD PAIN(1-3) OR TEMP>38C Last administered on 11/23/18at 21:38; Admin Dose 400 MG; Start 11/22/18 at 05:00 Vancomycin HCl 1.5 gm/Sodium Chloride 250 ml @ 83.333 mls/ hr Q12H IVPB Last administered on 11/24/18 13:07; Admin Dose 83.333 MLS/HR; Start 11/23/18 at 00:00 Oseltamivir Phosphate (Tamiflu) 75 mg DAILY PO Last administered on 11/24/18 08:29; Admin Dose 75 MG; Start 11/23/18 at 09:00 Meropenem/Sodium Chloride 50 ml @ 100 mls/hr Q8 IVPB Last administered on 11/05 06:08; Admin Dose 100 MLS/HR; Start 11/22/18 at 22:00 Enoxaparin Sodium (Lovenox) 40 mg QHS SC Last administered on 11/23/18 21:55; Admin Dose 40 MG; Start 11/23/18 at 21:00 Doxycycline Hyclate (Vibramycin) 100 mg BID PO Last administered on 11/24/18 08:29; Admin Dose 100 MG; Start 11/23/18 at 21:00 Calcitriol (Rocaltrol) 0.5 mcg DAILY PO Last administered on 11/24/18at 10:39; Admin Dose 0.5 MCG; Start 11/24/18 at 10:00 Miscellaneous Information (*Rx Drug Level Order Reminder*) 1 ONCE ONCE XX ; Start 11/24/18 at 23:00; Stop 11/24/18 at 23:01 Calcium Gluconate 2 gm/Dextrose 120 ml @ 60 mls/hr ONCE ONCE IVPB ; Start 11/24/18 at 14:30; Stop 11/24/18 at 16:29 ZAK GRAVES MD Nov 24, 2018 13:34
[2018-11-24] MEDS ORDERED: CALCIUM GLUCONATE 10% 2 GM in DEXTROSE 5% 100 ML IVPB ONE (14:30)
--- NOTE | 2018-11-24 15:16 | CONS ---
Assessment/Plan Assessment/Plan Hospital Course 57 yo M with hx of HTN and thyroid CA who presents following a transient alteration of awareness with ? LOC... for which neurology is consulted. The clinical picture is concerning for seizures. Transient global amnesia is a diagnosis of exclusion. Interval events: Today, 11/22/18, the pt is noted to be febrile with c/o headache, neck pain, and intermittent ams. Now s/p LP on 11/22... CSF eval is without evidence of leukocytosis to suggest meningoencephalitis.. MRI brain is reassuringly without acute intracranial pathology EEG is without epileptiform activity. Urine cx + Coags nl; plt 167 P: Medical management per ID/primary Cont to defer AED therapy Ativan IV PRN seizure > 5 min or for cluster Recommend MRI brain c/ c/o contrast with thin cuts through the temporal lobes (to further evaluate for a potential seizure focus), which may be done as an outpatient. The pt should not drive in the short-term Will follow clinically Consultation Date/Type/Reason Admit Date/Time Nov 21, 2018 at 09:13 Type of Consult Neurology Reason for Consultation TLOC; dysarthria Requesting Provider: BEN AVALOS MD Date/Time of Note DATE: 11/24/18 TIME: 15:16 24 HR Interval Summary Free Text/Dictation Continues acute care. Still having "low grade" temperatures today. Exam Vital Signs Vitals Vital Signs Date Temp Pulse Resp B/P (MAP) Pulse Ox O2 O2 Flow FiO2 Time Delivery Rate 11/24/18 88 12:01 11/24/18 99.6 18 108/69 98 Room Air 11:20 (82) 11/21/18 21 23:56 Intake and Output 11/23/18 11/23/18 11/24/18 1515:00 23:00 07:00 IntakeIntake Total 950 ml 1800 ml 2000 ml OutputOutput Total 800 ml BalanceBalance 950 ml 1800 ml 1200 ml Exam PE: Gen Appearance: No Apparent Distress HEENT: Normocephalic Cardiovascular: Regular rate Lungs: Clear bilaterally Abdomen: Soft Extremities: Dry NE: The patient was alert and oriented. Language was normal. Fund of knowledge was normal. Pupils were equal and reactive to light. There was no afferent pupillary defect. Visual negron were normal. Funduscopic examination was limited.. Extra-ocular movements were full. Ptosis was absent. There was no nystagmus. Facial sensation was normal. Face was symmetric with normal strength. Hearing was intact. Palate movements were normal. Neck strength was normal. There was normal tongue bulk and speed of movement. Tone was normal. Muscle bulk was normal. I did not see fasciculations. I did not see signs of meningsmus. Arms and legs were strong. Vibration sensation was normal. Temperature and pinprick sensation was normal. Rapid alternating movements were normal. There was no dysmetria. There was no intention tremor. Gait was deferred due to bedrest. Arm and leg reflexes were 2+ and symmetric. Holloway's sign was absent. Plantar responses were flexor. BARB HICKMAN NP Nov 24, 2018 15:16 BERNADINE GAMBOA Nov 24, 2018 16:44
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
[2018-11-24] MEDS: CALCIUM CARBONATE 500 MG CHEW TAB PO SCH (18:22)
[2018-11-24] MEDS: ATORVASTATIN 80 MG TAB PO SCH (21:33)
[2018-11-24] MEDS: CHOLESTYRAMINE 4 GM PACKET PO SCH (21:33)
[2018-11-24] MEDS: DEXAMETHASONE 2 MG TAB PO SCH (21:34)
[2018-11-24] MEDS: ENOXAPARIN 40 MG/0.4 ML SYG SC SCH (23:33)
[2018-11-25] VITALS (13 sets, daily range): BP systolic 105–118; BP diastolic 68–87; PULSE 72–100; RESP 16–22
[2018-11-25] MEDS: VANCOMYCIN HCL 1.5 GM in SOD CHLORIDE 0.9% 250 ML IVPB SCH ×2 (00:46→12:26)
[2018-11-25] MEDS: PANTOPRAZOLE (EC) 40 MG TAB PO SCH (05:35)
[2018-11-25] MEDS: LEVOTHYROXINE 100 MCG TAB PO SCH (05:35)
[2018-11-25] MEDS: LEVOTHYROXINE 150 MCG TAB PO SCH (05:36)
[2018-11-25] MEDS: MEROPENEM 1 GM/50ML(PMX) 50 ML IVPB SCH ×2 (05:39→14:00)
[2018-11-25] MEDS: SOD CHLORIDE 0.45% 1,000 ML IV SCH ×2 (07:04→19:13)
[2018-11-25] MEDS: CALCITRIOL 0.5 MCG CAPSULE PO SCH (08:51)
[2018-11-25] MEDS: DEXAMETHASONE 2 MG TAB PO SCH ×2 (08:51→12:31)
[2018-11-25] MEDS: ASPIRIN (EC) 325 MG TAB PO SCH (08:51)
[2018-11-25] MEDS: CHOLESTYRAMINE 4 GM PACKET PO SCH ×3 (08:51→21:26)
[2018-11-25] MEDS: DOXYCYCLINE 100 MG TAB PO SCH ×2 (08:51→21:27)
[2018-11-25] MEDS: CALCIUM CARBONATE 500 MG CHEW TAB PO SCH ×3 (08:51→19:12)
[2018-11-25] MEDS: OSELTAMIVIR 75 MG CAP PO SCH (08:52)
[2018-11-25] MEDS: CHLORTHALIDONE 25 MG TAB PO SCH (08:54)
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
--- NOTE | 2018-11-25 14:11 | CONS ---
Assessment/Plan Assessment/Plan Hospital Course 57 yo M with hx of HTN and thyroid CA who presents following a transient alteration of awareness with ? LOC... for which neurology is consulted. The clinical picture was initially concerning for seizures...however, EEG was negative. Thyroid studies confirm hyperthyroidism.. MRI brain is reassuringly without acute intracranial pathology CSF is negative P: Continued medical management per primary Continue to defer AED therapy Will sign off for now; please call w ?s Consultation Date/Type/Reason Admit Date/Time Nov 21, 2018 at 09:13 Type of Consult Neurology Reason for Consultation TLOC; dysarthria Requesting Provider: ELLE NIEVES Date/Time of Note DATE: 11/25/18 TIME: 14:11 24 HR Interval Summary Free Text/Dictation Continues acute care. No fevers or other complaints reported. Seen by endocrinology. Exam Vital Signs Vitals Vital Signs Date Temp Pulse Resp B/P (MAP) Pulse Ox O2 O2 Flow FiO2 Time Delivery Rate 11/25/18 98.0 81 22 116/76 96 Room Air 11:36 (89) 11/21/18 21 23:56 Intake and Output 11/24/18 11/24/18 11/25/18 1515:00 23:00 07:00 IntakeIntake Total 600 ml 800 ml BalanceBalance 600 ml 800 ml Exam PE: Gen Appearance: No Apparent Distress HEENT: Normocephalic Cardiovascular: Regular rate Lungs: Clear bilaterally Abdomen: Soft Extremities: Dry NE: The patient was alert and oriented. Language was normal. Fund of knowledge was normal. Pupils were equal and reactive to light. There was no afferent pupillary defect. Visual negron were normal. Funduscopic examination was limited.. Extra-ocular movements were full. Ptosis was absent. There was no nystagmus. Facial sensation was normal. Face was symmetric with normal strength. Hearing was intact. Palate movements were normal. Neck strength was normal. There was normal tongue bulk and speed of movement. Tone was normal. Muscle bulk was normal. I did not see fasciculations. I did not see signs of meningsmus. Arms and legs were strong. Vibration sensation was normal. Temperature and pinprick sensation was normal. Rapid alternating movements were normal. There was no dysmetria. There was no intention tremor. Gait was deferred due to bedrest. Arm and leg reflexes were 2+ and symmetric. Holloway's sign was absent. Plantar responses were flexor. BARB HICKMAN NP Nov 25, 2018 14:11 BERNADNIE GAMBOA Nov 25, 2018 19:50
--- NOTE | 2018-11-25 17:06 | CONS ---
Assessment/Plan Assessment/Plan Problems: (1) Postprocedural hypothyroidism Status: Chronic Comment: Must be continued on some form of replacement (2) Malignant neoplasm of thyroid gland Status: Chronic Comment: Although the goal in treatment of thyroid cancer is some small degree of thyrotoxicosis, this patient was beyond the goal (see below). Pt. will not develop metastatic thyroid cancer on a lower dosage of LT4 for the next 2-4 weeks to allow his levels to somewhat normalize. Likely target dosage in the future would be 137-150 mcg/d. 175 mcg/d is apparently too much. 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 He is feeling much better after < 24 hours dexamethasone and cholestyramine. I am going to d/c the dexamethasone as it might be masking his other clinical syndrome that brought him to the hospital. If his fevers do not return, he is probably ok to go home. He does not need to continue cholestyramine after d/c. (4) Postprocedural hypoparathyroidism Status: Chronic Comment: Calcium improved. Cont. Calcium w/ calcitriol. Cont. to monitor. Consultation Date/Type/Reason Admit Date/Time Nov 21, 2018 at 09:13 Initial Consult Date 11/24/18 Type of Consult Endocrinology Reason for Consultation R/o thyroid storm Requesting Provider: ELLE NIEVES Date/Time of Note DATE: 11/25/18 TIME: 17:01 24 HR Interval Summary Constitutional: no complaints, improved; No febrile Detailed Summary Respiratory: no complaints Cardiovascular: no complaints Gastrointestinal: no complaints Genitourinary: no complaints Musculoskeletal: no complaints Neurologic: no complaints Exam/Review of Systems Exam Vitals VS - Last 72 Hours, by Label Date Temp Pulse Resp B/P (MAP) Pulse Ox O2 O2 Flow FiO2 Time Delivery Rate 11/25/18 98.0 79 22 108/87 96 Room Air 16:53 (94) 11/25/18 73 16:31 11/25/18 82 15:33 11/25/18 98.0 81 22 116/76 96 Room Air 11:36 (89) 11/25/18 74 08:09 11/25/18 97.9 74 22 109/72 96 Room Air 07:56 (84) 11/25/18 97.8 80 18 108/69 94 Room Air 04:17 (82) 11/25/18 86 04:00 11/25/18 98.9 84 19 118/77 94 Room Air 00:22 (91) 11/25/18 82 00:00 11/24/18 98.5 80 18 106/71 93 Room Air 20:01 (83) 11/24/18 85 20:00 11/24/18 93 16:08 11/24/18 100.2 79 18 106/61 98 Room Air 15:15 (76) 11/24/18 88 12:01 11/24/18 99.6 89 18 108/69 98 Room Air 11:20 (82) 11/24/18 86 08:18 11/24/18 98.7 89 18 119/80 98 Room Air 07:35 (93) 11/24/18 98.3 90 18 125/60 95 Room Air 05:00 (81) 11/24/18 83 04:00 11/24/18 99 00:00 11/23/18 98.0 104 18 131/91 96 Room Air 23:52 (104) 11/23/18 105 20:00 11/23/18 98.6 101 20 135/71 Room Air 19:36 (92) 11/23/18 86 16:05 11/23/18 97.7 88 18 109/73 95 Room Air 15:26 (85) 11/23/18 100 12:12 11/23/18 99.9 101 18 110/70 98 Room Air 11:32 (83) 11/23/18 109 08:03 11/23/18 100.9 109 16 121/80 98 Room Air 07:44 (94) 11/23/18 101.5 108 18 127/79 97 05:19 (95) 11/23/18 107 04:00 11/23/18 89 00:00 11/22/18 98.6 94 18 109/67 97 23:17 (81) 11/22/18 110 20:00 11/22/18 100.9 107 18 131/73 97 19:43 (92) Vital Signs Date Temp Pulse Resp B/P (MAP) Pulse Ox O2 O2 Flow FiO2 Time Delivery Rate 11/25/18 98.0 79 22 108/87 96 Room Air 16:53 (94) 11/21/18 21 23:56 Intake and Output 11/24/18 11/24/18 11/25/18 1515:00 23:00 07:00 IntakeIntake Total 600 ml 800 ml BalanceBalance 600 ml 800 ml Constitutional: alert, oriented, well developed Psych: no complaints, nl mood/affect Respiratory: clear to auscultation, normal air movement Cardiovascular: regular rate and rhythm, nl pulses; No edema, No murmurs/extra sounds, No rub Gastrointestinal: soft, nl liver, spleen, non-tender, bowel sounds; No mass, No rebound or guarding Musculoskeletal: nl extremities to inspection Extremities: normal pulses; No cyanosis, No clubbing, No edema Neurological: PRODUCE SORTER II-XII intact, nl mental status, nl speech, nl strength Results Result Diagram: 11/25/1860311/25/1804 Results 24hrs Laboratory Tests Test 11/24/18 23:02 11/25/18 06:04 11/25/18 06:53 Vancomycin Level Trough 13.9 White Blood Count 4.0 #L Red Blood Count 4.49 L Hemoglobin 13.1 L Hematocrit 38.7 L Mean Corpuscular Volume 86.2 Mean Corpuscular Hemoglobin 29.2 Mean Corpuscular 33.9 Hemoglobin Concent Red Cell Distribution Width 13.2 Platelet Count 259 # Mean Platelet Volume 9.5 Immature Granulocytes % 0.500 H Neutrophils % 74.6 Lymphocytes % 17.8 Monocytes % 6.5 Eosinophils % 0.3 Basophils % 0.3 Nucleated Red Blood Cells % 0.0 Immature Granulocytes # 0.020 Neutrophils # 3.0 Lymphocytes # 0.7 L Monocytes # 0.3 Eosinophils # 0.0 Basophils # 0.0 Nucleated Red Blood Cells # 0.0 Sodium Level 141 Potassium Level 3.9 Chloride Level 99 Carbon Dioxide Level 30 Anion Gap 12 Blood Urea Nitrogen 17 Creatinine 0.97 Est Glomerular Filtrat > 60 Rate mL/min Glucose Level 126 Calcium Level 7.5 L Lab Scanned Report REFERENCE LAB Medications Medication Current Medications IV Flush (NS 3 ml) 3 ml PER PROTOCOL IV ; Start 11/19/18 at 18:00 Ondansetron HCl (Zofran Inj) 4 mg Q6H PRN IV NAUSEA/VOMITING Last administered on 11/23/18at 19:49; Admin Dose 4 MG; Start 11/19/18 at 18:00 Acetaminophen (Tylenol Tab) 650 mg Q6H PRN PO .PAIN 1-3 OR TEMP Last administered on 11/22/18at 18:10; Admin Dose 650 MG; Start 11/19/18 at 18:00 Acetaminophen/ Hydrocodone Bitart ([place] (5/325)) 1 tab Q6H PRN PO .MOD PAIN 4- 6 Last administered on 11/20/18at 16:02; Admin Dose 1 TAB; Start 11/19/18 at 18:00 Morphine Sulfate (morphine) 2 mg Q4H PRN IV .SEVERE PAIN 7-10; Start 11/19/18 at 18:00 Docusate Sodium (Colace) 100 mg Q12H PRN PO .CONSTIPATION; Start 11/19/18 at 18:00 Magnesium Hydroxide (Milk Of Mag) 30 ml DAILY PRN PO .CONSTIPATION; Start 11/19/18 at 18:00 Pantoprazole (Protonix Tab) 40 mg DAILY@06 PO Last administered on 11/25/18at 05:35; Admin Dose 40 MG; Start 11/20/18 at 06:00 Sodium Chloride 1,000 ml @ 75 mls/hr [id number] IV Last administered on 11/24/18at 10:40; Admin Dose 75 MLS/HR; Start 11/19/18 at 17:44 Lorazepam (Ativan) 0.5 mg Q6H PRN IV ANXIETY; Start 11/19/18 at 18:00 Albuterol/ Ipratropium (Duoneb) 3 ml Q4H RESP THERAPY PRN HHN SHORTNESS OF BREATH; Start 11/19/18 at 18:00 Hydralazine HCl (Apresoline) 10 mg Q6H PRN IV ELEVATED BLOOD PRESSURE; Start 11/19/18 at 18:00 Nitroglycerin (Nitroglycerin (Sl Tab) 0.4 Mg) 1 tab Q5M PRN SL ANGINA; Start 11/19/18 at 18:00 Aspirin (Ecotrin) 325 mg DAILY PO Last administered on 11/25/18at 08:51; Admin Dose 325 MG; Start 11/20/18 at 09:00 Chlorthalidone (Hygroton) 25 mg DAILY PO Last administered on 11/25/18at 08:54; Admin Dose 25 MG; Start 11/20/18 at 09:00 Atorvastatin Calcium (Lipitor) 80 mg HS PO Last administered on 11/24/18 21:33; Admin Dose 80 MG; Start 11/19/18 at 21:00 Levothyroxine Sodium (Synthroid) 150 mcg DAILY@06 PO Last administered on 11/25/18 05:36; Admin Dose 150 MCG; Start 11/21/18 at 06:00 Vancomycin HCl (Vanco Iv Per Pharmacy) VANCOMYCIN PER PHARMACY PER PROTOCOL XX ; Start 11/21/18 at 01:00 Ibuprofen (Motrin) 400 mg Q6H PRN PO MILD PAIN(1-3) OR TEMP>38C Last administered on 11/23/18 21:38; Admin Dose 400 MG; Start 11/22/18 at 05:00 Vancomycin HCl 1.5 gm/Sodium Chloride 250 ml @ 83.333 mls/ hr Q12H IVPB Last administered on 11/25/18 12:26; Admin Dose 83.333 MLS/HR; Start 11/23/18 at 00:00 Oseltamivir Phosphate (Tamiflu) 75 mg DAILY PO Last administered on 11/25/18 08:52; Admin Dose 75 MG; Start 11/23/18 at 09:00; Stop 11/28/18 at 08:59 Meropenem/Sodium Chloride 50 ml @ 100 mls/hr Q8 IVPB Last administered on 11/25/18 14:00; Admin Dose 100 MLS/HR; Start 11/22/18 at 22:00 Enoxaparin Sodium (Lovenox) 40 mg QHS SC Last administered on 11/24/18 23:33; Admin Dose 40 MG; Start 11/23/18 at 21:00 Doxycycline Hyclate (Vibramycin) 100 mg BID PO Last administered on 11/25/18 08:51; Admin Dose 100 MG; Start 11/23/18 at 21:00 Calcitriol (Rocaltrol) 0.5 mcg DAILY PO Last administered on 11/25/18 08:51; Admin Dose 0.5 MCG; Start 11/24/18 at 10:00 Cholestyramine Resin (Questran) 1 pkt TID PO Last administered on 11/25/18 12:31; Admin Dose 1 PKT; Start 11/24/18 at 21:00 Levothyroxine Sodium (Synthroid) 100 mcg DAILY@06 PO Last administered on 11/25/18at 05:35; Admin Dose 100 MCG; Start 11/25/18 at 06:00 Dexamethasone (Decadron) 2 mg TID PO Last administered on 11/25/18at 12:31; Admin Dose 2 MG; Start 11/24/18 at 21:00 Calcium Carbonate (Tums) 500 mg PC MEALS PO Last administered on 11/25/18at 12:31; Admin Dose 500 MG; Start 11/24/18 at 18:55 JADEN ALFREDO MD Nov 25, 2018 17:06
[2018-11-25] MEDS: ATORVASTATIN 80 MG TAB PO SCH (21:26)
[2018-11-25] MEDS: ENOXAPARIN 40 MG/0.4 ML SYG SC SCH (21:59)
[2018-11-26] VITALS (9 sets, daily range): BP systolic 105–113; BP diastolic 67–68; PULSE 70–82; RESP 18
[2018-11-26] MEDS: LEVOTHYROXINE 150 MCG TAB PO SCH (07:11)
[2018-11-26] MEDS: PANTOPRAZOLE (EC) 40 MG TAB PO SCH (07:11)
[2018-11-26] MEDS: LEVOTHYROXINE 100 MCG TAB PO SCH (07:11)
[2018-11-26] MEDS: CALCIUM CARBONATE 500 MG CHEW TAB PO SCH ×2 (08:31→12:16)
[2018-11-26] MEDS: ASPIRIN (EC) 325 MG TAB PO SCH (08:31)
[2018-11-26] MEDS: CHLORTHALIDONE 25 MG TAB PO SCH (08:32)
[2018-11-26] MEDS: CHOLESTYRAMINE 4 GM PACKET PO SCH ×2 (08:32→12:16)
[2018-11-26] MEDS: DOXYCYCLINE 100 MG TAB PO SCH (08:32)
[2018-11-26] MEDS: OSELTAMIVIR 75 MG CAP PO SCH (08:33)
[2018-11-26] MEDS: CALCITRIOL 0.5 MCG CAPSULE PO SCH (08:37)
[2018-11-26] MEDS: SOD CHLORIDE 0.45% 1,000 ML IV SCH (08:38)
--- NOTE | 2018-11-26 14:47 | CONS ---
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 He feels well and offers no complaints at this time. Exam/Review of Systems Exam Vitals Vital Signs Date Temp Pulse Resp B/P (MAP) Pulse Ox O2 O2 Flow FiO2 Time Delivery Rate 11/26/18 82 12:01 11/26/18 97.3 18 111/67 94 Room Air 11:35 (82) Intake and Output 11/25/18 11/25/18 11/26/18 1515:00 23:00 07:00 IntakeIntake Total 1180 ml 200 ml BalanceBalance 1180 ml 200 ml Exam General: Comfortable in appearance, not in acute distress. Skin appropriate for ethnicity Eye: Extraocular movements are intact, Normal conjunctiva. HENT: Normocephalic, atraumatic. Respiratory: Respirations are non-labored, Breath sounds are equal, Symmetrical chest wall expansion. Cardiovascular: S1, S2. No murmur. No LE edema Gastrointestinal: Soft, Non-tender, Non-distended, Normal bowel sounds. Integumentary: Warm to touch. Neurologic: Alert, Oriented. No hand tremor Cognition and Speech: Speech clear and coherent, Functional cognition intact. Psychiatric: Cooperative, Appropriate mood & affect. Results Result Diagram: 11/26/18 0633 11/26/18 0633 Results 24hrs Laboratory Tests Test 11/26/18 06:33 11/26/18 11:52 White Blood Count 7.4 # Red Blood Count 4.39 L Hemoglobin 12.9 L Hematocrit 37.8 L Mean Corpuscular Volume 86.1 Mean Corpuscular Hemoglobin 29.4 Mean Corpuscular Hemoglobin Concent 34.1 Red Cell Distribution Width 13.1 Platelet Count 328 # Mean Platelet Volume 9.2 Immature Granulocytes % 0.700 H Neutrophils % 75.6 Lymphocytes % 16.6 Monocytes % 6.5 Eosinophils % 0.3 Basophils % 0.3 Nucleated Red Blood Cells % 0.0 Immature Granulocytes # 0.050 H Neutrophils # 5.6 Lymphocytes # 1.2 Monocytes # 0.5 Eosinophils # 0.0 Basophils # 0.0 Nucleated Red Blood Cells # 0.0 Sodium Level 142 Potassium Level 3.9 Chloride Level 103 Carbon Dioxide Level 28 Anion Gap 11 Blood Urea Nitrogen 19 Creatinine 1.00 Est Glomerular Filtrat Rate mL/min > 60 Glucose Level 123 Calcium Level 7.2 L Lab Scanned Report REFERENCE LAB Medications Medication Current Medications IV Flush (NS 3 ml) 3 ml PER PROTOCOL IV ; Start 11/19/18 at 18:00 Ondansetron HCl (Zofran Inj) 4 mg Q6H PRN IV NAUSEA/VOMITING Last administered on 11/23/18at 19:49; Admin Dose 4 MG; Start 11/19/18 at 18:00 Acetaminophen (Tylenol Tab) 650 mg Q6H PRN PO .PAIN 1-3 OR TEMP Last administered on 11/22/18at 18:10; Admin Dose 650 MG; Start 11/19/18 at 18:00 Acetaminophen/ Hydrocodone Bitart ([place] (5/325)) 1 tab Q6H PRN PO .MOD PAIN 4- 6 Last administered on 11/20/18at 16:02; Admin Dose 1 TAB; Start 11/19/18 at 18:00 Morphine Sulfate (morphine) 2 mg Q4H PRN IV .SEVERE PAIN 7-10; Start 11/19/18 at 18:00 Docusate Sodium (Colace) 100 mg Q12H PRN PO .CONSTIPATION; Start 11/19/18 at 18:00 Magnesium Hydroxide (Milk Of Mag) 30 ml DAILY PRN PO .CONSTIPATION; Start 11/19/18 at 18:00 Pantoprazole (Protonix Tab) 40 mg DAILY@06 PO Last administered on 11/26/18at 07:11; Admin Dose 40 MG; Start 11/20/18 at 06:00 Sodium Chloride 1,000 ml @ 75 mls/hr [id number] IV Last administered on 11/26/18 08:38; Admin Dose 75 MLS/HR; Start 11/19/18 at 17:44; Status Hold Lorazepam (Ativan) 0.5 mg Q6H PRN IV ANXIETY; Start 11/19/18 at 18:00 Albuterol/ Ipratropium (Duoneb) 3 ml Q4H RESP THERAPY PRN HHN SHORTNESS OF BREATH; Start 11/19/18 at 18:00 Hydralazine HCl (Apresoline) 10 mg Q6H PRN IV ELEVATED BLOOD PRESSURE; Start 11/19/18 at 18:00 Nitroglycerin (Nitroglycerin (Sl Tab) 0.4 Mg) 1 tab Q5M PRN SL ANGINA; Start 11/19/18 at 18:00 Aspirin (Ecotrin) 325 mg DAILY PO Last administered on 11/26/18 08:31; Admin Dose 325 MG; Start 11/20/18 at 09:00 Chlorthalidone (Hygroton) 25 mg DAILY PO Last administered on 11/26/18 08:32; Admin Dose 25 MG; Start 11/20/18 at 09:00 Atorvastatin Calcium (Lipitor) 80 mg HS PO Last administered on 11/25/18 21:26 ; Admin Dose 80 MG; Start 11/19/18 at 21:00 Ibuprofen (Motrin) 400 mg Q6H PRN PO MILD PAIN(1-3) OR TEMP>38C Last administered on 11/23/18 21:38; Admin Dose 400 MG; Start 11/22/18 at 05:00 Oseltamivir Phosphate (Tamiflu) 75 mg DAILY PO Last administered on 11/26/18 08:33; Admin Dose 75 MG; Start 11/23/18 at 09:00; Stop 11/28/18 at 08:59 Enoxaparin Sodium (Lovenox) 40 mg QHS SC Last administered on 11/25/18 21:59; Admin Dose 40 MG; Start 11/23/18 at 21:00 Doxycycline Hyclate (Vibramycin) 100 mg BID PO Last administered on 11/26/18 08:32; Admin Dose 100 MG; Start 11/23/18 at 21:00; Stop 11/30/18 at 20:59 Calcitriol (Rocaltrol) 0.5 mcg DAILY PO Last administered on 11/26/18 08:37; Admin Dose 0.5 MCG; Start 11/24/18 at 10:00 Cholestyramine Resin (Questran) 1 pkt TID PO Last administered on 11/26/18 12:16; Admin Dose 1 PKT; Start 11/24/18 at 21:00 Levothyroxine Sodium (Synthroid) 100 mcg DAILY@06 PO Last administered on 11/26/18 07:11; Admin Dose 100 MCG; Start 11/25/18 at 06:00 Calcium Carbonate (Tums) 500 mg PC MEALS PO Last administered on 11/26/18 12:16; Admin Dose 500 MG; Start 11/24/18 at 18:55 POOJA SHARMA MD Nov 26, 2018 14:47
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
[2018-11-26] MEDS ORDERED: LEVO150T7 PO (16:36)
[2018-11-26] MEDS ORDERED: DOXY100T2 PO (16:36)
[2018-11-26] MEDS ORDERED: LEVO100T8 PO (16:36)
[2018-11-26] MEDS ORDERED: OSEL75CA16 PO (16:36)
--- NOTE | 2018-11-26 16:40 | PDOCDIS ---
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 For your thyroid, take levothyroxine 100 mcg for two weeks (14 days) then take the higher 150 mcg dose afterwards. Make an appointment with an endocrine specialist as soon as you can. 2. Also for your thyroid, continue calcitriol and calcium carbonate (oscal). 3. For suspected pulmonary psittacosis, take doxycycline for 4 more days (7 days total) 4. For suspected influenza, take one more dose of oseltamivir 5. Do not use a phone, even with a hands-free device, while driving. Avoid any distractions while driving. Otherwise you have no driving restrictions. 6. See your primary care doctor in 1-2 weeks. BEN AVALOS MD Nov 26, 2018 16:40
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
[2018-11-26] MEDS ORDERED: CALC1TAB79 PO (18:37)
[2018-11-26] MEDS ORDERED: CALC0.5C10 PO (18:37)
[2018-11-26] MEDS ORDERED: CHLO25TA2 PO (18:37)
== END 2018-11-26 17:50 | disposition home or self-care (01) | DRG 643 ==
LOC: E/R 14:23 → TEL 16:33 → CANRESERV 17:22 → OBSVTOIN 11-21 09:13
PROVIDERS: ADMIT Hospitalist; ATTEND Internal Medicine
PROC: 009U3ZX Drainage of Spinal Canal, Percutaneous Approach, Diagnostic (ICD-10-PCS; principal; 2018-11-22)
PROC: B01BZZZ Fluoroscopy of Spinal Cord (ICD-10-PCS; 2018-11-22)
DX: E05.40 Thyrotoxicosis factitia without thyrotoxic crisis or storm (principal); J18.9 Pneumonia, unspecified organism; G45.9 Transient cerebral ischemic attack, unspecified; A70 Chlamydia psittaci infections; R56.9 Unspecified convulsions; I10 Essential (primary) hypertension; E89.0 Postprocedural hypothyroidism; E89.2 Postprocedural hypoparathyroidism; Z79.82 Long term (current) use of aspirin; Z85.850 Personal history of malignant neoplasm of thyroid; Z87.891 Personal history of nicotine dependence
CPT/HCPCS: 36415; 70450; 70551; 70552; 71045; 71250; 72125; 74176; 80048; 80061; 80076; 80202; 80307; 81001; 82550; 82945; 83036; 83735; 84100; 84145; 84157; 84436; 84439; 84443; 84479; 84484; 85025; 85610; 85730; 86140; 86403; 86480; 86592; 86631; 86635; 86641; 86698; 86703; 86704; 86709; 86788; 86789; 86803; 87040; 87070; 87075; 87077; 87086; 87102; 87207; 87275; 87276; 87279; 87280; 87340; 87400; 87529; 87536; 89051; 90686; 92523; 92610; 93005; 93306; 93880; 95819; 96374; 96375; 97116; 97161; 97167; 97530; G0378; J0610; J0696; J1644; J1650; J2185; J2270; J2405; J3370; J3480; J7030; J7050